=== PATIENT | female | born 1985 | race African-American/Black ===

== ENCOUNTER 2020-10-04 13:00 | Outpatient (REF) | payer OTHER, SELFPAY ==
[2020-10-05 06:08] LABS: CT PCR NOT DETECTED (Not Detect.); NG PCR NOT DETECTED (Not Detect.)
[2020-10-05 08:39] LABS: BV Int Neg Control Negative (Negative); BV Int Pos Control Positive (Positive)
[2020-10-07 13:17] LABS: HPV mRNA E6/E7 rflx Not Detected (Not Detected)
== END 2020-10-04 13:01 | disposition home or self-care (01) ==
LOC: HO.LAB 13:00
PROVIDERS: Visit Provider Advanced Practice Midwife
DX: Z01.419 Encounter for gynecological examination (general) (routine) without abnormal findings (principal); Z11.51 Encounter for screening for human papillomavirus (HPV); Z11.3 Encounter for screening for infections with a predominantly sexual mode of transmission; G43.829 Menstrual migraine, not intractable, without status migrainosus; Z20.2 Contact with and (suspected) exposure to infections with a predominantly sexual mode of transmission; Z87.42 Personal history of other diseases of the female genital tract
CPT/HCPCS: 87480; 87491; 87510; 87591; 87624; 87660; 88142

== ENCOUNTER 2021-03-21 08:39 | Outpatient (REF) | payer OTHER, SELFPAY | END 2021-03-21 08:40 | disposition home or self-care (01) | LOC: HO.LAB 08:39 | PROVIDERS: Visit Provider Internal Medicine | DX: Z20.822 Contact with and (suspected) exposure to COVID-19 (principal) | CPT/HCPCS: C9803; U0003; U0005 ==

== ENCOUNTER 2021-12-15 13:48 | Outpatient (REF) | payer OTHER, SELFPAY ==
[2021-12-16 02:31] LABS: CT PCR NOT DETECTED (Not Detect.); NG PCR NOT DETECTED (Not Detect.)
[2021-12-16 09:47] LABS: BV Int Neg Control Negative (Negative); BV Int Pos Control Positive (Positive)
[2021-12-22 22:41] LABS: HPV mRNA E6/E7 rflx Not Detected (Not Detected)
== END 2021-12-15 13:49 | disposition home or self-care (01) ==
LOC: HO.LNP 13:48
PROVIDERS: Visit Provider Advanced Practice Midwife
DX: Z01.419 Encounter for gynecological examination (general) (routine) without abnormal findings (principal); Z11.51 Encounter for screening for human papillomavirus (HPV); Z11.3 Encounter for screening for infections with a predominantly sexual mode of transmission; Z87.42 Personal history of other diseases of the female genital tract
CPT/HCPCS: 87480; 87491; 87510; 87591; 87624; 87660; 88142

== ENCOUNTER 2022-01-06 09:01 | Emergency (ER) | payer OTHER, SELFPAY ==
--- NOTE | ~2022-01-06 | US_ITS ---
EXAMINATION: US OBSTETRICAL ULTRASOUND CLINICAL INFORMATION: with vaginal bleeding COMPARISON: None. LMP: November 17, 2021. Gestational age by maternal dates is 7 weeks 1 day. Estimated date of delivery by maternal dates is August 24, 2022. TECHNIQUE: Ultrasound of the maternal pelvis is performed using transabdominal and transvaginal transducers. Transvaginal imaging is performed due to inadequate visualization transabdominally. M-mode Doppler is also performed. FINDINGS: Within the cervix/lower uterine segment there is a hypoechoic elongated structure which may represent a gestational sac and somewhat less likely nabothian cysts. No intrauterine is identified. No yolk sac, pole, or heart rate is appreciated. MATERNAL ADNEXA: The right maternal ovary measures 2.1 x 1.1 x 1.5 cm. The left maternal ovary measures 2.0 x 1.6 x 1.3 cm. There is no significant maternal adnexal mass. There is trace fluid seen within the cul-de-sac. US/US OB pelvic and transvaginal IMPRESSION: No intrauterine identified. Question elongated gestational sac within the lower uterine segment/cervix.
[2022-01-06 09:17] VITALS: BP 120/80; PULSE 98; RESP 16; TEMP 36.7; O2SAT 97; BMI 25.6
[2022-01-06 11:37] LABS: MANUAL DIFF FLAG NO
[2022-01-06 11:41] LABS: Basophils Absolute Auto 0.1 X10*3/uL (0.0-0.2); Basophils Percent Auto 0.5 % (0-2); Eosinophils Percent Auto 0.2 % (0-4); Hematocrit 44.2 % (37.0-47.0); Hemoglobin 14.2 g/dl (12.0-16.0); Imm Gran Abs Auto 0.03 X10*3/uL (0.00-0.03); Imm Gran Pct Auto 0.2 % (0.0-0.4); Lymphocytes Absolute Auto 2.1 X10*3/uL (1.2-4.9); Lymphocytes Percent Auto 15.8 % (20-40); Mean Corpuscular HGB Conc 32.1 g/dl (31.0-35.0); Mean Corpuscular Hemoglobin 29.7 pg (27.0-33.0); Mean Corpuscular Volume 92.5 fL (80.0-98.0); Mean Platelet Volume 10.7 fL (9.4-12.3); Monocytes Absolute Auto 0.5 X10*3/uL (0.1-1.2); Monocytes Percent Auto 3.6 % (2-11); Neutrophils Absolute Auto 10.4 x10*3/uL (2.0-8.3); Neutrophils Percent Auto 79.7 % (45-73); Platelet Count 276 X10*3/uL (160-400); Red Blood Count 4.78 X10*6/uL (4.20-5.50); Red Cell Distribution Width 12.6 % (11.0-16.0); White Blood Count 13.1 X10*3/uL (4.8-10.8)
[2022-01-06 12:00] LABS: Alanine Aminotransferase 10 U/L (0-31); Alkaline Phosphatase 94 U/L (39-117); Anion Gap 14 (12-20); Aspartate Amino Transferase 12 U/L (5-31); Bilirubin Total 0.6 mg/dL (0.0-1.0); Blood Urea Nitrogen 5 mg/dL (9-16); Calcium 9.1 mg/dL (8.4-10.2); Carbon Dioxide 23 mmol/L (22-29); Chloride 105 mmol/L (96-108); Creatinine Clr Calc Pharmacy 120.6; Estimated Glomerular Filt Rate > 60; Glucose Random 97 mg/dL (60-115); Potassium 4.3 mmol/L (3.3-5.1); Sodium 138 mmol/L (135-145); Total Protein 6.9 g/dL (6.5-8.0)
[2022-01-06 13:43] VITALS: BP 130/74; PULSE 97; RESP 18; TEMP 37.1; O2SAT 99
--- NOTE | 2022-01-06 16:48 | ED_ITS ---
HPI - General Chief complaint: Vaginal Bleeding Stated complaint: possible miscarrige Time Seen by Provider: 01/06/22 16:46 Source: patient Mode of arrival: ambulatory Limitations: no limitations History of Present Illness HPI Narrative: This is a 36 year old female A0 prsenting to the emergency department with complaints of abdominal discomfort, vaginal bleeding since this morning. According to patient she noted a large amount of blood earlier today when she wiped after going to the bathroom, she reports that she thinks she is around seven weeks . She tells me that she is not bleeding heavily however when she wipes she notices dark red blood. She reports that her abdomen feels bizarre and she describes ?gas bubbles ? and intermittent cramping to lower abdomen. She called her OBGYN who is out of [facility] and they advised her to come in to be evaluated. Patient is taking vitamins,however has not been seen by OBGYN yest. Patient has never had an or miscarriage in the past. Patient denies fevers, chills, chest pain, headache, dizziness, vision changes, shortness of breath nausea, vomiting, vaginal discharge, changes in urination or bowel habits per MD Complaint: vaginal bleeding Related Data Home Medications Medication Instructions Recorded Confirmed levothyroxine 75 mcg capsule 75 mcg PO DAILY 10/04/20 12/15/21 Previous Rx's Medication Instructions Recorded vitamin with calcium 1 tab PO DAILY #90 tabs 12/15/21 no.72-iron 27 mg-folic acid 1 mg tablet ( Vitamins Plus Low Iron) metronidazole 500 mg tablet 500 mg PO BID 7 days #14 tabs 12/16/21 Allergies Allergy/AdvReac Type Severity Reaction Status Date / Time No Known Allergies Allergy Verified 01/06/22 09:17 Review of Systems Review of Systems: Constitutional : No Weight loss, No Fever, No Chills, No Fatigue, No Malaise ENT/Mouth : No sore throat, No Rhinorrhea Eyes: No Eye Pain, No Swelling, No Redness Cardiovascular : No Chest Pain, No SOB, No Dyspnea on Exertion, No Orthopnea, No Edema, No Palpitations Respiratory : No Cough, No Sputum, No Wheezing Gastrointestinal : No Nausea, No Vomiting, No Diarrhea, No Constipation, + abdominal Pain, No Hematochezia, No Melena, Genitourinary : No Dysuria, No Urinary Frequency, No Hematuria, + vaignal bleeding Musculoskeletal : No joint pain, No Myalgias, No Joint Swelling Skin : No Skin Lesions, No rash Neuro : No Weakness, No Numbness, No Dizziness, No Headache Psych : No Anxiety/Panic, No Depression All other systems reviewed and are negative Yes all other systems are reviewed and are negative [facility] Past Medical History Attestation statement: The following information was validated with the patient. Source: old records reviewed and nursing notes reviewed Medical History Hypothyroid Family History Family History Paternal Aunt Breast cancer Social History Social History Alcohol intake: current Alcohol intake frequency: a few times a week Patient Tobacco Use Status: Never used Tobacco Advance Directives: No Advance Directives Information Provided: No Patient : Yes Gender identity: Female Physical Exam Vital Signs: Vital Signs: Last Vital Signs Temp 99.2 F 01/06/22 19:27 Pulse 94 01/06/22 19:27 Resp 18 01/06/22 19:27 BP 132/76 01/06/22 19:27 Pulse Ox 99 01/06/22 19:27 O2 Del Method 01/06/22 19:27 BMI result Body Mass Index 25.6 vss Appearance: Alert.? Oriented X3.? No acute distress.? Head: Normocephalic, atraumatic, no step-offs or deformities Eyes: Pupils equal, round and reactive to light.? Neck: Normal inspection.? Neck supple.? CVS: Normal heart rate and rhythm.? Pulses normal.? Respiratory: No respiratory distress.? Breath sounds normal.? Abdomen: Soft and nontender.? Skin: Skin warm and dry.? Normal skin color.? Normal skin turgor.? Extremities: No lower extremity edema.? No calf ttp. 5/5 strength to bilateral upper and lower extremities Pelvic exam: Neuro: Oriented X 3.? No motor deficit.? No sensory deficit. CN 2-12 intact Course Reevaluation(s) Reevaluation #1: CBC with slight leukocytosis, likely reactive secondary to inflammatory changes, chemistry with no acute electrolyte abnormalities requiring intervention. HCG 1961. Patient is noted to be O positive, pelvic and transvaginal ultrasound with no intrauterine . There is a question elongated gestational sac within the lower uterine segment/the cervix. This is all concerning for active miscarriage. Patient still declining pelvic exam. I did speak to . who recommends if blood type negative rhogam 300 mcg. A recommends for her to come back to the emergency department 48 hours for re-evaluation with repeat hCG jody titative and ultrasound. And he advised me to educate her on worrisome signs and symptoms and when to return to the emergency department. Time: 17:23 Reevaluation #2: Patient remains hemodynamically stable, abdomen exam benign. Since patient is O positive no need for RhoGAM. Time: 18:34 Reevaluation #3: At this time patient will be discharged home advised return in 48 hours for re- evaluation, educated her on warning signs and symptoms and when to return. Likely threatened /miscarriage. At this time I feel comfortable discharge home with prompt PCP, OBGYN follow-up and 48 hour emergency department follow-up. Time: 19:25 MDM - OB/Uterine Contractions MDM Narrative Medical decision making narrative: 1650 This is a 36-year-old female a 1 presenting to the emergency department with vaginal bleeding with wiping, abd cramping currently 7 weeks , has an OBGYN but hasn't seen them yet. No history of miscarriage or . Physical examination with soft nontender abdomen, normoactive bowel sounds, regular rate and rhythm, lungs clear, neuro nonfocal, vital signs stable, patient appears well and in no acute distress. Sensitive exam was refussed by patient Concerns for threatened or abnormal bleeding during . Plan at this time is to obtain basic labs, STD testing, ultrasound Medical Records Attestation: I reviewed the patient's medical records. Lab Data Attestation: I reviewed the patient's lab results. Result diagrams: 01/06/22 19:31 01/06/22 11:26 Labs: Lab Results 01/06/22 01/06/22 01/06/22 Range/Units 11:26 11:26 11:26 WBC 13.1 H (4.8-10.8) X10*3/uL RBC 4.78 (4.20-5.50) X10*6/uL Hgb 14.2 (12.0-16.0) g/dl Hct 44.2 (37.0-47.0) % MCV 92.5 (80.0-98.0) fL MCH 29.7 (27.0-33.0) pg MCHC 32.1 (31.0-35.0) g/dl RDW 12.6 (11.0-16.0) % Plt Count 276 (160-400) X10*3/uL MPV 10.7 (9.4-12.3) fL Immature Gran % (Auto) 0.2 (0.0-0.4) % Neut % (Auto) 79.7 H (45-73) % Lymph % (Auto) 15.8 L (20-40) % [place] % (Auto) 3.6 (2-11) % Eos % (Auto) 0.2 (0-4) % Baso % (Auto) 0.5 (0-2) % Lymph # (Auto) 2.1 (1.2-4.9) X10*3/uL [place] # (Auto) 0.5 (0.1-1.2) X10*3/uL Eos # (Auto) 0.0 (0.0-0.4) X10*3/uL Baso # (Auto) 0.1 (0.0-0.2) X10*3/uL Abs Immat Gran (auto) 0.03 (0.00-0.03) X10*3/uL Absolute Neuts (auto) 10.4 H (2.0-8.3) x10*3/uL Absolute Nucleated RBC 0.000 (0.0-0.012) X10*3/uL Nucleated RBC % (auto) 0.0 (0.0-0.2) /100WBC Sodium 138 (135-145) mmol/L Potassium 4.3 (3.3-5.1) mmol/L Chloride 105 (96-108) mmol/L Carbon Dioxide 23 (22-29) mmol/L Anion Gap 14 (12-20) BUN 5 L (9-16) mg/dL Creatinine 0.62 (0.5-1.4) mg/dL Estim Creat Clear Calc 120.6 Estimated GFR > 60 Random Glucose 97 (60-115) mg/dL Calcium 9.1 (8.4-10.2) mg/dL Total Bilirubin 0.6 (0.0-1.0) mg/dL AST 12 (5-31) U/L ALT 10 (0-31) U/L Alkaline Phosphatase 94 (39-117) U/L Total Protein 6.9 (6.5-8.0) g/dL Albumin 4.0 (3.5-5.0) g/dL Beta HCG, Quant 1961 mIU/mL Blood Type O Positive Antibody Screen 01/06/22 01/06/22 Range/Units 18:43 19:31 WBC 14.4 H (4.8-10.8) X10*3/uL RBC 4.86 (4.20-5.50) X10*6/uL Hgb 14.7 (12.0-16.0) g/dl Hct 44.4 (37.0-47.0) % MCV 91.4 (80.0-98.0) fL MCH 30.2 (27.0-33.0) pg MCHC 33.1 (31.0-35.0) g/dl RDW 12.8 (11.0-16.0) % Plt Count 268 (160-400) X10*3/uL MPV 10.2 (9.4-12.3) fL Immature Gran % (Auto) 0.2 (0.0-0.4) % Neut % (Auto) 76.4 H (45-73) % Lymph % (Auto) 18.1 L (20-40) % [place] % (Auto) 4.7 (2-11) % Eos % (Auto) 0.3 (0-4) % Baso % (Auto) 0.3 (0-2) % Lymph # (Auto) 2.6 (1.2-4.9) X10*3/uL [place] # (Auto) 0.7 (0.1-1.2) X10*3/uL Eos # (Auto) 0.0 (0.0-0.4) X10*3/uL Baso # (Auto) 0.1 (0.0-0.2) X10*3/uL Abs Immat Gran (auto) 0.03 (0.00-0.03) X10*3/uL Absolute Neuts (auto) 11.0 H (2.0-8.3) x10*3/uL Absolute Nucleated RBC 0.000 (0.0-0.012) X10*3/uL Nucleated RBC % (auto) 0.0 (0.0-0.2) /100WBC Sodium (135-145) mmol/L Potassium (3.3-5.1) mmol/L Chloride (96-108) mmol/L Carbon Dioxide (22-29) mmol/L Anion Gap (12-20) BUN (9-16) mg/dL Creatinine (0.5-1.4) mg/dL Estim Creat Clear Calc Estimated GFR Random Glucose (60-115) mg/dL Calcium (8.4-10.2) mg/dL Total Bilirubin (0.0-1.0) mg/dL AST (5-31) U/L ALT (0-31) U/L Alkaline Phosphatase (39-117) U/L Total Protein (6.5-8.0) g/dL Albumin (3.5-5.0) g/dL Beta HCG, Quant mIU/mL Blood Type O Positive Antibody Screen NEGATIVE Critical Care Time Critical Care Time Critical Care Time: Yes Total Critical Care Time: 35 Attestation: I attest to this time spent taking care of the patient, obtaining history, physical, reviewing labs, imaging, speaking to my attending, speaking to specialist. Discharge Plan Discharge Clinical Impression: Vaginal bleeding in , Threatened Patient Disposition: Home, Self-Care Instructions: Miscarriage (ED), Dilation and Curettage (DC) Additional Instructions: Take your medications as prescribed. If you were prescribed antibiotics today, it is important that you take your medication to their entirety, do not skip any doses, do not finish them early. Follow-up with your primary care provider this week. Return to the emergency department with new or worsening symptoms. Such as fevers, chills, chest pain, shortness of breath, nausea, vomiting, dizziness, headache, vision changes, lethargy, abdominal pain, heavy vaginal bleeding or bleeding through more than 2 pads per hour, pelvic pain In case of emergency call 911 Based off of your physical examination, laboratory studies and imaging it is likely that your miscarrying however this cannot be confirmed unless further evaluation is done including ultrasound and repeat laboratory studies. I need you to call OBGYN and schedule an appointment with them as soon as possible. You need to be re-evaluated as soon as possible. Return to the emergency department in 48 hours for re-evaluation where you will get a repeat hCG quantitative and ultrasound. Prescriptions: No Action metronidazole 500 mg tablet 500 mg PO BID 7 Days Qty: 14 0RF Rx Instructions: Take with food, Avoid alcohol and vinegar products levothyroxine 75 mcg capsule 75 mcg PO DAILY Vitamin Plus Low Iron 27 mg iron- 1 mg tablet 1 tab PO DAILY Qty: 90 4RF Referrals: Luli Ellsworth NP [Primary Care Provider] - 2 days Navarro Kline MD [Physician] - 1 day Stand Alone Forms: Work/School Release
[2022-01-06 16:52] VITALS: BP 134/85; PULSE 111; RESP 22; O2SAT 97
[2022-01-06 17:14] LABS: HCG Quantitative 1961 mIU/mL
--- NOTE | 2022-01-06 17:30 | PM.GYNCN ---
[employer] - CN: HPI Data of Consult Consult date: 01/06/22 Primary Care Provider: Luli Ellsworth NP Consult Narrative Narrative: I was consulted on Liliam Chan who is a 36 year old A0 at 7 weeks of gestation by LMP according to the patient presenting to the emergency department with abdominal discomfort, vaginal bleeding since this morning.? No care yet.? No other complaints. In the emergency CBC within normal,HCG 1960, ultrasound done, GC and chlamydia, BV panel collected, results pending, blood type pending cc:: CC: OB [facility] Past Medical History Medical History Hypothyroid Family History Family History Paternal Aunt Breast cancer Social History Social History Alcohol intake: current Alcohol intake frequency: a few times a week Patient Tobacco Use Status: Never used Tobacco Advance Directives: No Advance Directives Information Provided: No Patient : Yes Gender identity: Female Meds Allergies Allergy/AdvReac Type Severity Reaction Status Date / Time No Known Allergies Allergy Verified 01/06/22 09:17 Home Medications Medication Instructions Recorded Confirmed Last Taken Type levothyroxine 75 mcg capsule 75 mcg PO DAILY 10/04/20 12/15/21 Unknown History [employer] Physical Exam Vitals Vital signs: Temp Pulse Resp BP Pulse Ox O2 Del Method 98.7 F 111 H 22 H 134/85 97 01/06/22 13:43 01/06/22 16:52 01/06/22 16:52 01/06/22 16:52 01/06/22 16:52 01/06/22 16:52 BMI result Body Mass Index 25.6 Additional Comments: Per JANELL Escalante Abdominal exam soft nontender and benign Pelvic exam patient adamantly declined [employer] - Results Labs CBC & Chem 7: 01/06/22 11:26 01/06/22 11:26 Labs: Short CBC 01/06/22 Range/Units 11:26 WBC 13.1 H (4.8-10.8) X10*3/uL Hgb 14.2 (12.0-16.0) g/dl Hct 44.2 (37.0-47.0) % Plt Count 276 (160-400) X10*3/uL BMP 01/06/22 11:26 Sodium 138 Potassium 4.3 Chloride 105 Carbon Dioxide 23 BUN 5 L Creatinine 0.62 Calcium 9.1 Liver Function 01/06/22 Range/Units 11:26 Total Bilirubin 0.6 (0.0-1.0) mg/dL AST 12 (5-31) U/L ALT 10 (0-31) U/L Alkaline Phosphatase 94 (39-117) U/L Albumin 4.0 (3.5-5.0) g/dL Imaging US - abdomen: Radiologist's impression: ITS Impressions Pelvic/Transvag US 01/06/22 16:18 IMPRESSION: No intrauterine identified. Question elongated gestational sac within the lower uterine segment/cervix. Assessment and Plan (1) First trimester bleeding: Status: Acute Plan Differential diagnosis includes but not limited to SAB, early intrauterine normal or ectopic . Recommended to JANELL Escalante in the emergency room the following: Check Rh if negative RhoGAM 300 mcg IM vitamin 1 tablet p.o. q.d. Follow-up back in the emergency room in 48 hours for a repeat hCG quantitative and ultrasound SAB/ectopic warnings to be given to patient, she is to come back in case to the emergency of abdominal pain, vaginal bleeding. I spent a total of 20 minute reviewing the chart, communicating to the emergency room provider and documenting in the medical record
[2022-01-06 18:20] VITALS: BP 134/83; PULSE 105; RESP 16; TEMP 37.5; O2SAT 98
[2022-01-06 19:27] VITALS: BP 132/76; PULSE 94; RESP 18; TEMP 37.3; O2SAT 99
--- NOTE | 2022-01-06 19:28 | PC.NURSE ---
care assumed now. patient is alert, oriented x4, and well-appearing. she endorses abdominal cramping and lower back pain. she states she's been through 3 pads since her arrival to the ED, though reports they weren't fully saturated. she is requesting food/drink- per MD now patient is OK to eat and partner goes to cafeteria to get her food. obtaining repeat CBC now then likely discharge per ED team. vitals are stable. patient is tearful, emotional support provided. call allen is within reach.
[2022-01-06 19:34] LABS: MANUAL DIFF FLAG NO
[2022-01-06 19:35] LABS: Basophils Absolute Auto 0.1 X10*3/uL (0.0-0.2); Basophils Percent Auto 0.3 % (0-2); Eosinophils Percent Auto 0.3 % (0-4); Hematocrit 44.4 % (37.0-47.0); Hemoglobin 14.7 g/dl (12.0-16.0); Imm Gran Abs Auto 0.03 X10*3/uL (0.00-0.03); Imm Gran Pct Auto 0.2 % (0.0-0.4); Lymphocytes Absolute Auto 2.6 X10*3/uL (1.2-4.9); Lymphocytes Percent Auto 18.1 % (20-40); Mean Corpuscular HGB Conc 33.1 g/dl (31.0-35.0); Mean Corpuscular Hemoglobin 30.2 pg (27.0-33.0); Mean Corpuscular Volume 91.4 fL (80.0-98.0); Mean Platelet Volume 10.2 fL (9.4-12.3); Monocytes Absolute Auto 0.7 X10*3/uL (0.1-1.2); Monocytes Percent Auto 4.7 % (2-11); Neutrophils Percent Auto 76.4 % (45-73); Platelet Count 268 X10*3/uL (160-400); Red Blood Count 4.86 X10*6/uL (4.20-5.50); Red Cell Distribution Width 12.8 % (11.0-16.0); White Blood Count 14.4 X10*3/uL (4.8-10.8)
[2022-01-07 05:35] LABS: CT PCR NOT DETECTED (Not Detect.); NG PCR NOT DETECTED (Not Detect.)
[2022-01-07 14:26] LABS: BV Int Neg Control Negative (Negative); BV Int Pos Control Positive (Positive)
== END 2022-01-06 20:00 | disposition home or self-care (01) ==
PROVIDERS: Physician Assistant; Emergency Provider Emergency Medicine Emergency Medical Services; PCP Nurse Practitioner Family
DX: O20.0 Threatened abortion (principal); Z3A.01 Less than 8 weeks gestation of pregnancy; Z79.899 Other long term (current) drug therapy
CPT/HCPCS: 36415; 76801; 76817; 80053; 84702; 85025; 86850; 86900; 86901; 87480; 87491; 87510; 87591; 87660; 99284

== ENCOUNTER 2022-01-09 11:10 | Outpatient (REF) | payer OTHER, SELFPAY ==
--- NOTE | ~2022-01-09 | US_ITS ---
EXAMINATION: US OBSTETRICAL ULTRASOUND CLINICAL INFORMATION: Threatened COMPARISON: Examination of 3 days previous.. TECHNIQUE: Transabdominal and transvaginal examination. FINDINGS: No gestational sac, yolk sac, pole identified. The previously noted elongated hypoechoic structure noted previously does not appear to be significantly changed and may reflect nabothian cysts at the lower uterine segment. MATERNAL ADNEXA: The right maternal ovary measures 2.4 x 1.4 x 1.9 cm. No focal abnormality. The left maternal ovary measures 2.5 x 1.3 x 1.6 cm. No focal abnormality. There is no significant maternal adnexal mass. No maternal pelvic ascites. US/US OB <= 14 weeks fetus IMPRESSION: No appreciable intrauterine gestation identified. Previously noted elongated hypoechoic structure at the lower uterine segment may reflect nabothian cysts and does not appear to be significantly changed, although a threatened is not completely excluded. No new free fluid. Serial beta hCG evaluation and follow-up ultrasound could be helpful for further assessment.
[2022-01-09 12:12] LABS: HCG Quantitative 80 mIU/mL
== END 2022-01-09 11:11 | disposition home or self-care (01) ==
LOC: HO.US 11:10
PROVIDERS: Visit Provider Advanced Practice Midwife
DX: O03.9 Complete or unspecified spontaneous abortion without complication (principal)
CPT/HCPCS: 36415; 76801; 84702; 99212

== ENCOUNTER 2022-01-16 13:27 | Outpatient (REF) | payer OTHER, SELFPAY ==
[2022-01-16 15:29] LABS: HCG Quantitative 4 mIU/mL
== END 2022-01-16 13:28 | disposition home or self-care (01) ==
LOC: HO.LAB 13:27
PROVIDERS: PCP Nurse Practitioner Family; Visit Provider Advanced Practice Midwife
DX: O03.9 Complete or unspecified spontaneous abortion without complication (principal)
CPT/HCPCS: 36415; 84702

== ENCOUNTER 2022-01-25 16:05 | Outpatient (REF) | payer OTHER, SELFPAY ==
[2022-01-25 17:01] LABS: HCG Quantitative < 2 mIU/mL
== END 2022-01-25 16:06 | disposition home or self-care (01) ==
LOC: HO.LAB 16:05
PROVIDERS: Visit Provider Advanced Practice Midwife
DX: O03.9 Complete or unspecified spontaneous abortion without complication (principal)
CPT/HCPCS: 36415; 84702

== ENCOUNTER 2022-04-03 10:02 | Outpatient (REF) | payer OTHER, SELFPAY ==
[2022-04-03 12:45] LABS: HCG Quantitative 26571 mIU/mL
== END 2022-04-03 10:03 | disposition home or self-care (01) ==
LOC: HO.LAB 10:02
PROVIDERS: Visit Provider Advanced Practice Midwife
DX: O09.529 Supervision of elderly multigravida, unspecified trimester (principal)
CPT/HCPCS: 36415; 81025; 84702; 99212

== ENCOUNTER 2022-04-21 12:40 | Outpatient (REF) | payer OTHER, SELFPAY ==
--- NOTE | ~2022-04-21 | US_ITS ---
EXAMINATION: US OBSTETRICAL ULTRASOUND CLINICAL INFORMATION: Positive test. COMPARISON: None. LMP: 02/10/2022. Gestational age by maternal dates is 10 weeks 0 days. Estimated date of delivery by maternal dates is 11/17/2022. TECHNIQUE: Ultrasound of the maternal pelvis is performed using transabdominal and transvaginal transducers. Transvaginal imaging is performed due to inadequate visualization transabdominally. M-mode Doppler is also performed. FINDINGS: There is a single intrauterine gestational sac with visible yolk sac, embryo/fetus, and cardiac activity. There is no significant subchorionic hemorrhage or hematoma. HR: 172 beats per minute. CRL (crown rump length): 2.44 cm (9 weeks 2 days +/- 4 days). CHRISTEL (estimated date of delivery): 11/22/2022 +/- 4 days. MATERNAL ADNEXA: The right maternal ovary measures 3.2 x 2.7 x 1.8 cm. The left maternal ovary is not visualized. There is no significant maternal adnexal mass. No maternal pelvic ascites. US/US OB <= 14 weeks fetus IMPRESSION: 1. Single intrauterine gestation with ultrasound gestational age of 9 weeks 2 days +/- 4 days. 2. Estimated date of delivery is 11/22/2022 +/- 4 days. 3. No maternal adnexal mass or pelvic ascites.
== END 2022-04-21 12:41 | disposition home or self-care (01) ==
LOC: HO.US 12:40
PROVIDERS: Visit Provider Advanced Practice Midwife
DX: O09.521 Supervision of elderly multigravida, first trimester (principal); Z3A.10 10 weeks gestation of pregnancy
CPT/HCPCS: 76801

== ENCOUNTER 2022-04-27 13:57 | Outpatient (REF) | payer OTHER, SELFPAY | END 2022-04-27 13:58 | disposition home or self-care (01) | LOC: HO.LAB 13:57 | PROVIDERS: PCP Nurse Practitioner Family; Visit Provider Advanced Practice Midwife | DX: O99.280 Endocrine, nutritional and metabolic diseases complicating pregnancy, unspecified trimester (principal); O09.529 Supervision of elderly multigravida, unspecified trimester; E03.9 Hypothyroidism, unspecified; Z71.3 Dietary counseling and surveillance | CPT/HCPCS: 99212 ==

== ENCOUNTER 2022-05-01 15:34 | Outpatient (REF) | payer OTHER, SELFPAY ==
[2022-05-01 16:27] LABS: Hematocrit 43.7 % (37.0-47.0); Hemoglobin 14.5 g/dl (12.0-16.0); Mean Corpuscular HGB Conc 33.2 g/dl (31.0-35.0); Mean Corpuscular Volume 90.3 fL (80.0-98.0); Mean Platelet Volume 11.3 fL (9.4-12.3); Platelet Count 278 X10*3/uL (160-400); Red Blood Count 4.84 X10*6/uL (4.20-5.50); Red Cell Distribution Width 12.4 % (11.0-16.0); White Blood Count 12.9 X10*3/uL (4.8-10.8)
[2022-05-01 16:32] LABS: Amphetamine Screen Urine Not Detected (Not Detect); Barbiturates, Urine Not Detected (Not Detect); Benzodiazepines Screen Urine Not Detected (Not Detect); Cannabinoid Screen Urine POSITIVE (Not Detect); Cocaine Screen Urine Not Detected (Not Detect); Fentanyl, urine Not Detected (Not Detect); Opiate Screen Urine Not Detected (Not Detect); Phencyclidine Screen Urine Not Detected (Not Detect)
[2022-05-01 17:02] LABS: TSH reflex Free T4 (Prenatal) 10.25 uIU/mL (0.32-4.0)
[2022-05-02 08:43] LABS: Rubella IgG Antibody <0.90 Index
[2022-05-03 07:52] LABS: Syphilis Screen Nonreactive (Nonreactive)
[2022-05-03 07:58] LABS: HIV AB/AG Nonreactive (Nonreactive); HIV Num 1 0.08 S/CO (0.00-0.99); Hepatitis B Surface Antigen Negative (Negative); ~HepC Num1 0.07 S/CO (0.00-0.79); ~Hepatitis C Antibody Nonreactive (Nonreactive)
[2022-05-11 16:39] LABS: CF Ethnicity NG; Cystic Fibrosis NEGATIVE (NEGATIVE)
== END 2022-05-01 15:35 | disposition home or self-care (01) ==
LOC: HO.LAB 15:34
PROVIDERS: PCP Nurse Practitioner Family; Visit Provider Advanced Practice Midwife
DX: Z11.4 Encounter for screening for human immunodeficiency virus [HIV] (principal); O99.280 Endocrine, nutritional and metabolic diseases complicating pregnancy, unspecified trimester; E03.9 Hypothyroidism, unspecified
CPT/HCPCS: 80307; 81220; 84439; 85027; 86762; 86780; 86787; 86803; 86850; 86900; 87086; 87340; 87389

== ENCOUNTER 2022-05-08 13:43 | Outpatient (REF) | payer OTHER, SELFPAY ==
[2022-05-09 05:33] LABS: CT PCR NOT DETECTED (Not Detect.); NG PCR NOT DETECTED (Not Detect.)
[2022-05-09 11:20] LABS: BV Int Neg Control Negative (Negative); BV Int Pos Control Positive (Positive)
== END 2022-05-08 13:44 | disposition home or self-care (01) ==
LOC: HO.LNP 13:43
PROVIDERS: PCP Nurse Practitioner Family; Visit Provider Advanced Practice Midwife
DX: O09.521 Supervision of elderly multigravida, first trimester (principal); O99.281 Endocrine, nutritional and metabolic diseases complicating pregnancy, first trimester; O98.311 Other infections with a predominantly sexual mode of transmission complicating pregnancy, first trimester; E03.9 Hypothyroidism, unspecified; Z3A.11 11 weeks gestation of pregnancy; Z87.42 Personal history of other diseases of the female genital tract
CPT/HCPCS: 0353U; 87480; 87510; 87660; 99212

== ENCOUNTER → 2022-06-08 13:32 | Outpatient (BNVA) | payer OTHER, SELFPAY | PROVIDERS: PCP Nurse Practitioner Family; Visit Provider Obstetrics & Gynecology | DX: O09.522 Supervision of elderly multigravida, second trimester (principal); O99.282 Endocrine, nutritional and metabolic diseases complicating pregnancy, second trimester; E03.9 Hypothyroidism, unspecified | CPT/HCPCS: 99212 ==

== ENCOUNTER 2022-06-16 13:32 | Outpatient (REF) | payer OTHER, SELFPAY ==
[2022-06-16 15:03] LABS: Amphetamine Screen Urine Not Detected (Not Detect); Barbiturates, Urine Not Detected (Not Detect); Benzodiazepines Screen Urine Not Detected (Not Detect); Cannabinoid Screen Urine Not Detected (Not Detect); Cocaine Screen Urine Not Detected (Not Detect); Fentanyl, urine Not Detected (Not Detect); Opiate Screen Urine Not Detected (Not Detect); Phencyclidine Screen Urine Not Detected (Not Detect)
[2022-06-16 16:39] LABS: TSH reflex Free T4 (Prenatal) 1.77 uIU/mL (0.32-4.0)
[2022-07-03 07:37] LABS: AFP Maternal Screen SEE COMMENTS
== END 2022-06-16 13:33 | disposition home or self-care (01) ==
LOC: HO.LAB 13:32
PROVIDERS: PCP Nurse Practitioner Family; Visit Provider Obstetrics & Gynecology
DX: Z34.90 Encounter for supervision of normal pregnancy, unspecified, unspecified trimester (principal)
CPT/HCPCS: 80307; 82105

== ENCOUNTER → 2022-07-06 13:12 | Outpatient (BNVA) | payer OTHER, SELFPAY | PROVIDERS: Visit Provider Obstetrics & Gynecology | DX: O09.522 Supervision of elderly multigravida, second trimester (principal); O99.282 Endocrine, nutritional and metabolic diseases complicating pregnancy, second trimester; E03.9 Hypothyroidism, unspecified; O09.292 Supervision of pregnancy with other poor reproductive or obstetric history, second trimester; Z3A.20 20 weeks gestation of pregnancy | CPT/HCPCS: 99212 ==

== ENCOUNTER → 2022-08-03 15:01 | Outpatient (BNVA) | payer OTHER, SELFPAY | PROVIDERS: Visit Provider Advanced Practice Midwife | DX: O09.522 Supervision of elderly multigravida, second trimester (principal); O99.282 Endocrine, nutritional and metabolic diseases complicating pregnancy, second trimester; E03.9 Hypothyroidism, unspecified; O26.22 Pregnancy care for patient with recurrent pregnancy loss, second trimester; Z3A.24 24 weeks gestation of pregnancy | CPT/HCPCS: 81003; 99212 ==

== ENCOUNTER 2022-09-02 08:03 | Outpatient (REF) | payer OTHER, SELFPAY ==
[2022-09-02 10:14] LABS: Hematocrit 37.5 % (37.0-47.0); Hemoglobin 12.4 g/dl (12.0-16.0); Mean Corpuscular HGB Conc 33.1 g/dl (31.0-35.0); Mean Corpuscular Hemoglobin 30.7 pg (27.0-33.0); Mean Corpuscular Volume 92.8 fL (80.0-98.0); Mean Platelet Volume 10.8 fL (9.4-12.3); Platelet Count 229 X10*3/uL (160-400); Red Blood Count 4.04 X10*6/uL (4.20-5.50); Red Cell Distribution Width 12.6 % (11.0-16.0); White Blood Count 11.6 X10*3/uL (4.8-10.8)
[2022-09-02 10:29] LABS: Glucose 1 Hour PP 50gm Dose 128 mg/dL (60-140)
[2022-09-02 10:57] LABS: TSH reflex Free T4 (Prenatal) 1.27 uIU/mL (0.32-4.0)
[2022-09-04 08:39] LABS: Syphilis Screen Nonreactive (Nonreactive)
== END 2022-09-02 08:04 | disposition home or self-care (01) ==
LOC: HO.LAB 08:03
PROVIDERS: Absent Provider Obstetrics & Gynecology; PCP Nurse Practitioner Family; Visit Provider Advanced Practice Midwife
DX: O99.280 Endocrine, nutritional and metabolic diseases complicating pregnancy, unspecified trimester (principal); E03.9 Hypothyroidism, unspecified
CPT/HCPCS: 36415; 82950; 85027; 86780

== ENCOUNTER → 2022-09-05 08:05 | Outpatient (BNVA) | payer OTHER, SELFPAY | PROVIDERS: PCP Nurse Practitioner Family; Visit Provider Advanced Practice Midwife | DX: O09.523 Supervision of elderly multigravida, third trimester (principal); Z3A.28 28 weeks gestation of pregnancy | CPT/HCPCS: 81003; 99212 ==

== ENCOUNTER → 2022-09-19 08:17 | Outpatient (BNVA) | payer OTHER, SELFPAY | PROVIDERS: PCP Nurse Practitioner Family; Visit Provider Advanced Practice Midwife | DX: O09.523 Supervision of elderly multigravida, third trimester (principal); O99.283 Endocrine, nutritional and metabolic diseases complicating pregnancy, third trimester; E03.9 Hypothyroidism, unspecified; Z3A.30 30 weeks gestation of pregnancy | CPT/HCPCS: 81003; 99212 ==

== ENCOUNTER 2022-10-05 15:41 | Outpatient (AMB) | payer OTHER, SELFPAY ==
--- NOTE | 2022-10-05 15:48 | A.OFFVISPN_ITS ---
Intake Vital Signs 10/05/22 15:49 Height 5 ft 5 in Weight 176 lb BMI 29.3 BP 100/60 Intake Visit Reasons: MAGALIS Intake Note: The patient agreed to use of a medical chief technician during this encounter. Scribed for LINDSAY Paredes by Khadijah Lloyd, medical chief technician, on 10/05/2022 at 4:00 pm EST. Allergies No Known Allergies Allergy (Verified 10/05/22 15:48) Patient : Yes PFSH Medical History (Updated 09/19/22 @ 08:52 by Khadijah Lloyd) Encounter for supervision of normal in third trimester Encounter for supervision of other normal , second trimester Hypothyroid (~04/27/22) Family History Paternal Aunt Breast cancer Social History Alcohol intake: current Alcohol intake frequency: a few times a week Patient Tobacco Use Status: Never used Tobacco Patient : Yes Gender identity: Female Female Reproductive History Menstrual Age of Menarche: 10 History History 5 Elective abortions 0 Para Spontaneous abortions 1 Hx # Term Pregnancies 3 Ectopic pregnancies 0 Hx # Pregnancies 0 Multiple births 0 Past Pregnancies Del. Date GA/Weeks Outcome Route Wt Inf Gender Labor Debbie Anesthesia Location Provider Complicate 07/04/02 40 live - full term 7 lb 7 oz Male 16 hurs none [facility] [place] 11/14/05 40 live - full term 8 lb 6 oz Female 15 hours none [facility] [place] 01/29/10 41 live - full term 7 lb 6 oz Female 4 hours none [facility] [place] 01/04/22 7 spontaneous Visit [facility] Calculator Estimated Delivery Date Method Current WG Current Estimate 11/22/22 Ultrasound #1 33w 1d Other Estimates 11/17/22 LMP (Uncertain) 33w 6d Expected Delivery Route/Plan vaginal Specific Issues/Plans 36yr. old ? ? G 5?P 3003? ? ?LMP: 02/10/22 ? EDC: 11/22/22 ?by early u/s ? ?Blood type: O pos Problem List: 1. AMA: AP testing at 37 wks 2. Hypothyroid-stopped Levothyroxine 75 mcg after SAB, TSH = 10.25-Synthroid restarted, TSH Q trimester. 09/02/22-1.27 3. Marijuana use: quit w/diagnosis. counseled re: not to use during . Advised random UDS, testing at delivery, infant testing, social worker masters visit/assessment , possible filing 51A. Provide a smoke free environment at home and in the car, and no exposure to second hand smoke. 4. Rubella non immune: pp vaccine 5. gardnerella Pos, to be offered rx./mo'b Testing: Panorama/and or [facility] screen: ? low?risk NT scan: FAS: nl Vaccinations: Covid: no vaccines, had Covid 2019 Tdap: 10/05/22 Education/Services WIC: enrolled Social Supports/Stressors: Living situation: lives w/her 3 children, Supports: partner Work: direct care staff Transportation: has own transportation Labor, and Concerns: Labor support: partner-Jma, involved, supportive. Plan: natural Infant Feeding Plans: breast control: OB Visit Log Initial Weight: 150 lb Date -?-?-?-?-?-?-?-?-?-?-?-?- EGA Weight Gest Week Fundal Ht Present FHR move Efface % Edema BP PrePreg We Weight GTT -?-?-?-?-?-?-?-?-?-?-?-?- Glucose LV Protein Blood Type 04/27/22 -?-?-?-?-?-?-?-?-?-?-?-?- 10w 1d 339 lb 15.245 oz (+189 lb 15.245 oz) 339 lb 1 5.245 oz -?-?--?-?-?-?-?-?-?-?-?-?- 05/08/22 -?-?-?-?-?-?-?-?-?-?-?-?- 11w 5d 150 lb (+0 oz) 11 150 120/74 150 lb -?-?-?-?-?-?-?-?-?-?-?-?- 06/08/22 -?-?-?-?-?-?-?-?-?-?-?-?- 16w 1d 155 lb (+5 lb) 16 150 114/68 155 lb -?-?-?-?-?-?-?-?-?-?-?-?- 07/06/22 -?-?-?-?-?-?-?-?-?-?-?-?- 20w 1d 161 lb (+11 lb) 20 150 120/72 161 l b -?-?-?-?-?-?-?-?-?-?-?-?- 08/03/22 -?-?-?-?-?-?-?-?-?-?-?-?- 24w 1d 168 lb (+18 lb) 24 150 120/66 168 l b -?-?-?-?-?-?-?-?-?-?-?-?- 09/05/22 -?-?-?-?-?-?-?-?-?-?-?-?- 28w 6d 173 lb (+23 lb) 30 150 110/60 173 l b -?-?-?-?-?-?-?-?-?-?-?-?- 09/19/22 -?-?-?-?-?-?-?-?-?-?-?-?- 30w 6d 172 lb (+22 lb) 30 150 active 104/64 172 lb -?-?-?-?-?-?-?-?-?-?-?-?- 10/05/22 -?-?-?-?-?-?-?-?-?-?-?-?- 33w 1d 176 lb (+26 lb) 33 140 active 100/60 176 lb -?-?-?-?-?-?-?-?-?-?-?-?- Notes Visit Date: 10/05/22 Last Updated by: Bridget Guadarrama CNM Note author: Bridget Guadarrama CNM/Khadijah Lloyd medical chief technician 33.1 wk MAGALIS. Feeling well. Taking PNV. Hydrating well and good appetite Good FM, no LOF, VB or abd pain. Interested in transferring care to [facility] at this ti me. TDaP offered; she accepts. Discussed: PTL - LOF, VB, abd pain . TDaP reviewed and ordered. Different BC options reviewed. MAGALIS visit every 2 weeks until transfer of care to [facility]. AP testing at 37wks. Advised to eat small frequent meals and stay cool and hydrated. Recommend stretches to help with pelvic tilting for her low back pain, if no improvement consider PT. PEC - headaches: not resolved with 2 regular strength Tylenol doses, visual disturbances warnings and when to call for further evaluation. Reviewed when to call for any VB, LOF, contractions, Kick counts reviewed and when to call for any decreased FM. Encouraged patient to sign up for patient portal. Discussed to call the service here for any emergencies/deliveries to be directed to [facility]. Visit Date: 09/19/22 Last Updated by: Bridget Guadarrama CNM Note author: Bridget Guadarrama CNM/Khadijah Lloyd medical chief technician 30.6 wk MAGALIS. Feeling well. Taking PNV. Hydrating well and good appetite Good FM, no LOF, VB or abd pain. No complaints or concerns States she would like to defer the TDaP until next visit. Reports taking PNV gummies and iron qd. Reports a few [place] U/c's. Discussed: PTL - LOF, VB, abd pain . Discuss transfer of care process; will discuss decision next visit. Advised to eat small frequent meals and stay cool and hydrated. PEC - headaches: not resolved with 2 regular strength Tylenol doses, visual disturbances warnings and when to call for further evaluation. Reviewed when to call for any VB, LOF, PTL contractions, when to call for further eval. Kick counts reviewed and when to call for any decreased FM. Discussed to call the service here for any emergencies/deliveries to be directed to [facility]. [facility] midwifery info provided. RTO 2 wks. Visit Date: 09/05/22 Last Updated by: Bridget Guadarrama CNM Note author: Bridget Guadarrama CNM/Khadijah Lloyd medical chief technician 28.6 wk MAGALIS. Feeling well. Taking PNV. Hydrating well and good appetite Good FM, no LOF, VB or abd pain. TDAP offered today; she opts to do it at another visit. EPDS 8: States the father of her other children passed and is dealing with alot with her daughter's depression. States she tends to cry to cope, has a great support system. Discussed: PTL - LOF, VB, abd pain . Reviewed previous lab work. Advised to call/ meet staff and midwives at [facility]. Lite rature given. Advised to eat healthy including small frequent meals every 2 hrs and stay hydrated in hot weather. Recommend reading and online classes/research for educational purposes. PEC - headaches: not resolved with 2 regular strength Tylenol doses, visual disturbances warnings and when to call for further evaluation. Reviewed when to call for any VB, LOF, contractions, Kick counts reviewed and when to call for any decreased FM. Encouraged patient to sign up for patient portal. Discussed to call the service here for any emergencies/deliveries to be directed to [facility]. RTO 2 wks. Visit Date: 08/03/22 Last Updated by: Bridget Guadarrama CNM Note author: Bridget Guadarrama CNM/Khadijah Lloyd medical chief technician 24.1wk MAGALIS. Feeling well. Taking PNV. Hydrated well and good appetite Good FM, no LOF, VB or abd pain. States it wss difficult to schedule last lab work due to her ability to not take off time from work. Discussed: PTL - LOF, VB, abd pain Advised to eat healthy and stay hydrated. PEC - headaches: not resolved with 2 regular strength Tylenol doses, visual disturbances warnings and when to call for further evaluation. 28wk labs incl: thyroid level, prev. ordered(Sunday-weekend before visit due to her work hrs.). Reviewed when to call for any VB, LOF, contractions, Kick counts reviewed and when to call for any decreased FM. Encouraged patient to sign up for patient portal. Discussed to call the service here for any emergencies/deliveries to be directed to [facility]. Marijuana use: counseled re: stopping, not to use during . Advised random UDS, testing at delivery, testing, social worker masters visit/assessment , possible filing 51A. Provide a smoke free envir onment at home and in the car, and no exposure to second hand smoke. RTO 4wks. Visit Date: 07/06/22 Last Updated by: Navarro Kline MD Presenting for visit with no complaints, no contractions, leakage of fluid or bleeding. On vitamin 1 tablet p.o. q.d. A/P: 20 weeks and 1 day of gestation with: 1-hypothyroidism last TSH was on 06/15 was within normal repeat TSH Q trimester. TSH ordered 2-THC positive last urine tox screen was negative for THC on 06/16 3-1st trimester screen/NIPT was low risk, of a fetoprotein negative for neural tube defect, anomaly scan scheduled for tomorrow at [facility] 4- labor warnings given the patient, she is to call in case of contractions, leakage of fluid or bleeding or decreased movements. Follow-up appointment to be scheduled in 4 weeks Visit Date: 06/08/22 Last Updated by: Navarro Kline MD Presenting for visit with no complaints, no contractions, leakage of fluid or bleeding. On vitamin 1 tablet p.o. q.d.. A/P: 16 weeks and 1 day of gestation with: 1-hypothyroidism, TSH was 10.25, the patient was restarted on Synthroid 4 weeks ago order TSH and repeat every trimester 2-positive THC- Discussed with the patient the following effects of Marijuana use in : -Studies noted that children who were exposed to marijuana in utero had lower scores on tests of visual problem solving, visual?motor coordination, decreased attention span and behavioral problems by age 14 years and visual analysis, poorer reading and spelling scores and lower teacher-perceived school performance, smaller lengths and head circumferences as well as lower weights among exposed offspring. These findings were more pronounced among women who used more marijuana, particularly during the first and second trimesters -Available evidence does not consistently suggest that marijuana causes structural anatomic defects in humans except one study showed that marijuana use in the first month of , the odds of anencephaly in the offspring of users was significantly increased to 2.5 - There is somewhat a higher stillbirth rate, no increase in the risk of -At the end, the patient was informed that screening substance abuse will be done throughout this , the purpose of which is to allow treatment of the woman?s substance use, not to punish or prosecute her; In addition the patient was informed of the potential ramification of a positive screen result including mandatory reporting requirements. Will order repeat urine tox screen 3-Rubella nonimmune-rubella vaccine post 4-AMA- Discussed with the patient options for testing for chromosome abnormalities including but not limited to: -Single time point screening with cell free DNA with 99% detection rate for trisomy 21, 98% detection rate for trisomy 18 and 99% detection rate for trisomy 13, combined false-positive rate of 0.13%., some labs offer testing for other aneuploidy such as trisomy 16 and trisomy 22, micro deletion testing and genome wide screening of large copy number changes 26-28, such screening is not recommended. -Ultrasound measurement of NT alone, its sensitivity for T21 detection being only 70%. -First trimester screen: Serum aneuploidy screening with ultrasound which includes cell-free DNA and placental protein based tests, in addition to NT measured by ultrasound, discussed with the patient its sensitivity, false- positive rate, and other limitations associated with each test. First trimester screening gives the potential for earlier diagnosis as well as the ability to screen for other structural, genetic or placental disorders. -Second trimester screening between week 15-22w 6 of gestation, with 80% detection rate for trisomy 21 with a 5% false positive rate. -Combined 1st and 2nd trimester screening test, either integrated, sequential or contingent screening provides a higher detection rate for trisomy 21, 18 and 13 in 1 step serum analyte screening. -Second trimester ultrasound for structural defect. -The availability of invasive diagnostic tests including amniocentesis and CVS were reviewed with the patient, and their potential association with risk of a miscarriage. In addition, the differences between screening tests and diagnostic tests were discussed with the patient. At the end, patient declined diagnostic test and opted for the First trimester screening that is based cell-free DNA or non-invasive testing (NIPT) in combination of ultrasound for NT measurement. All questions answered the patient verbalized understanding. A survey will be scheduled at 18-22 weeks. 5-Open neural tube defect screening-discussed with the patient options of screening including maternal vulva fetoprotein and anomaly screen all pros and cons risks benefits, the patient decided to go for both will order of a fetoprotein 6-SAB warnings given the patient, she is to come back in 4 weeks Visit Date: 05/08/22 Last Updated by: Matilda Mariano CNM Patient is here for her 1st visit P OB PE. She is 11 weeks and 5 days based off of an early ultrasound done to confirm dating. She has a nuchal translucency and genetic screening visit at [facility] on this coming Sunday05/10/2022. We discussed NIPT and that it would most likely be offered to her after the nuchal translucency ultrasound. She has a history of hypothyroid and after her miscarriage she just stopped the medication. She had all of her lab work done last week for the initial OB visit and is awaiting the results TSH level to communicate with her primary care provider so that the dose can be adjusted she was on levothyroxine 75 mcg. The TSH level was 10.25, which is markedly elevated. She is going to sign paperwork to have the low this level faxed to her provider now so that when she calls they will have the record in front of them today for dosage adjustment I told her to anticipate a increased dosage. We reviewed care here versus receiving care at [facility]. She is more comfortable coming here for care I did discuss high risk reasons that would necessitate a transfer. We reviewed that she would not get to know her delivering team head of time if she comes here for care but she is comfortable with the midwives delivering her. Her Pap smear was normal in November so it was not repeated today. RTC 4 weeks. I reviewed that for all urgent visits she would be evaluated at [facility] after calling here. Visit Date: 04/27/22 Last Updated by: Melly Azar LPN Liliam is here today with her s.o/ FOB. for Nurse intake. . Pt is able to drink and eat ok. Discussed more frequent smaller amounts of healthy food choices. Advised to stay away from fast foods, and salty foods. Also to increase her H2O to 7-10 glasses per day. Pt denies any problems with her pregnancies, no GDM or PEC. She denies any use of MJ or illecits. Discussed with pt that her [place] will be done [place] [facility], as well as delivery. She was also informed that she will be transferred to [facility] if her becomes high risk at any point. Pt verbs understanding. 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 Pt has HX of Hypothyroid, and says she has not been taking her medications, TSH ordered with her routine labs. She was urged to contact her prescribing provider for refill on her meds, especially when . Pt verbs understanding.Discussed with pt, how to reach supervisor show operations MD for any OB emergencies, and to go to [facility] ED prior to 20 wks gestation for any problems. Discussed NT U/S, and genetic screening that will be ordered on day of u/s. Discussed with and given packet to pt. Pt has not been vaccinated for flu or Covid. Discussed recommendations in . She does desire to breast feed. Pt brought out to front end application developer for scheduling her OB Physical. Results AMB Urinalysis, Automated UA Leukoctes 0.5 Ubaldo/uL Last Edit by Ruby Styles Thang on 10/05/22 15:5 7 UA Nitrite Negative Last Edit by [facility] on 10/05/22 15:57 UA Urobilinogen 0.5 mg/dL Last Edit by Ruby [facility] on 10/05/22 15 :57 UA Protein 0.5 mg/dL Last Edit by Ruby [facility] on 10/05/22 15:57 UA pH 6.0 Last Edit by Ruby [facility] on 10/05/22 15:57 UA Blood 0.5 Checo/uL Last Edit by Ruby Styles Thang on 10/05/22 15:57 UA Specific [place] 1.025 Last Edit by Ruby [facility] on 10/05/22 15:57 UA Ketone Negative Last Edit by KWADWO Smith on 10/05/22 15:57 UA Bilirubin 0 mg/dL Last Edit by Ruby [facility] on 10/05/22 15:57 UA Glucose 0 mg/dL Last Edit by Ruby [facility] on 10/05/22 15:57 Results Reviewed Results Reviewed: Laboratory Last Values Urine pH (Auto) 6.0 10/05/22 15:56 Specific [place] (Auto) 1.025 10/05/22 15:56 Urine Protein (Auto) 0.5 mg/dL 10/05/22 15:56 Glucose (UA)(Auto) 0 mg/dL 10/05/22 15:56 Urine Ketones (Auto) Negative 10/05/22 15:56 Urine Blood (Auto) 0.5 [place]co/uL 10/05/22 15:56 Urine Nitrite (Auto) Negative 10/05/22 15:56 Urine Bilirubin (Auto) 0 mg/dL 10/05/22 15:56 Urine Urobilinogen (Auto) 0.5 mg/dL 10/05/22 15:56 Leukocyte Esterase (Auto) 0.5 Ubaldo/uL 10/05/22 15:56 Assessment & Plan Assessment & Plan (1) Encounter for supervision of normal in third trimester: Code(s): Z34.93 - Encounter for supervision of normal , unspecified, third trimester Category: Medical Orders: Orders TDaP Immunization Today Z34.93 - Encounter for supervision of normal , unspecified, third trimester AMB Urinalysis Automated Today Z34. - Encounter for supervision of normal , unspecified, third trimester Medications: New Boostrix Tdap (diphth,pertus(acell),tetanus) 0.5 mL IM ONCE 0.5 mL 0RF NS Z34. - Encounter for supervision of normal , unspecified, third trimester Coding Level of Care Code [facility] Diagnoses Encounter for supervision of normal in third trimester Z34.93
[2022-10-05 15:49] VITALS: BP 100/60; BMI 29.3
== END 2022-10-06 07:21 | disposition home or self-care (01) ==
LOC: HO.HWS 15:42
PROVIDERS: PCP Nurse Practitioner Family; Visit Provider Advanced Practice Midwife
DX: Z34.93 Encounter for supervision of normal pregnancy, unspecified, third trimester (principal)
CPT/HCPCS: 25942

== ENCOUNTER → 2022-10-05 15:41 | Outpatient (BNVA) | payer OTHER, SELFPAY | PROVIDERS: PCP Nurse Practitioner Family; Visit Provider Advanced Practice Midwife | DX: O09.523 Supervision of elderly multigravida, third trimester (principal); O99.283 Endocrine, nutritional and metabolic diseases complicating pregnancy, third trimester; E03.9 Hypothyroidism, unspecified; Z3A.33 33 weeks gestation of pregnancy | CPT/HCPCS: 81003; 99212 ==

== ENCOUNTER 2022-10-19 08:08 | Outpatient (AMB) | payer OTHER, SELFPAY ==
--- NOTE | 2022-10-19 08:17 | A.OFFVISPN_ITS ---
Intake Vital Signs 10/19/22 08:18 Height 5 ft 5 in Weight 179 lb BMI 29.8 BP 120/72 Intake Visit Reasons: mykel Intake Note: The patient agreed to use of a rn medical inpatient services during this encounter. Scribed for LINDSAY Paredes by Khadijah Lloyd, rn medical inpatient services, on 10/19/2022 at 8:42 am EST. Allergies No Known Allergies Allergy (Verified 10/19/22 08:18) Patient : Yes PFSH Medical History (Updated 09/19/22 @ 08:52 by Khadijah Lloyd) Encounter for supervision of normal in third trimester Encounter for supervision of other normal , second trimester Hypothyroid (~04/27/22) Family History Paternal Aunt Breast cancer Social History Alcohol intake: current Alcohol intake frequency: a few times a week Patient Tobacco Use Status: Never used Tobacco Gender identity: Female Female Reproductive History Menstrual Age of Menarche: 10 History History 5 Elective abortions 0 Para Spontaneous abortions 1 Hx # Term Pregnancies 3 Ectopic pregnancies 0 Hx # Pregnancies 0 Multiple births 0 Past Pregnancies Del. Date GA/Weeks Outcome Route Wt Inf Gender Labor Debbie Anesthesia Location Provider Complicate 07/04/02 40 live - full term 7 lb 7 oz Male 16 hurs none [facility] [place] 11/14/05 40 live - full term 8 lb 6 oz Female 15 hours none [facility] [place] 01/29/10 41 live - full term 7 lb 6 oz Female 4 hours none [facility] [place] 01/04/22 7 spontaneous Visit [facility]STEL Calculator Estimated Delivery Date Method Current WG Current Estimate 11/22/22 Ultrasound #1 35w 1d Other Estimates 11/17/22 LMP (Uncertain) 35w 6d Expected Delivery Route/Plan vaginal Specific Issues/Plans 36yr. old ? ? G 5?P 3003? ? ?LMP: 02/10/22 ? EDC: 11/22/22 ?by early u/s ? ?Blood type: O pos Problem List: 1. AMA: AP testing at 37 wks 2. Hypothyroid-stopped Levothyroxine 75 mcg after SAB, TSH = 10.25-Synthroid restarted, TSH Q trimester. 09/02/22-1.27 3. Marijuana use: quit w/diagnosis. counseled re: not to use during . Advised random UDS, testing at delivery, testing, social service director visit/assessment , possible filing 51A. Provide a smoke free env ironment at home and in the car, and no exposure to second hand smoke. 4. Rubella non immune: pp vaccine 5. gardnerella Pos, to be offered rx./mo'b Testing: Panorama/and or [facility] screen: ? low?risk NT scan: FAS: nl Vaccinations: Covid: no vaccines, had Covid 2019 Tdap: 10/05/22 Education/Services WIC: enrolled Social Supports/Stressors: Living situation: lives w/her 3 children, Supports: partner Work: direct care staff Transportation: has own transportation Labor, and Concerns: Labor support: partner-Jam, involved, supportive. Plan: natural Feeding Plans: breast control: OB Visit Log Initial Weight: 150 lb Date -?-?-?-?-?-?-?-?-?-?-?-?- EGA Weight Gest Week Fundal Ht Present FHR move Efface % Edema BP PrePreg We Weight GTT -?-?-?-?-?-?-?-?-?-?-?-?- Glucose LV Protein Blood Type 04/27/22 -?-?-?-?-?-?-?-?-?-?-?-?- 10w 1d 339 lb 15.245 oz (+189 lb 15.245 oz) 339 lb 1 5.245 oz -?-?-?-?-?-?-?-?-?-?-?-?- 05/08/22 -?-?-?-?-?-?-?-?-?-?-?-?- 11w 5d 150 lb (+0 oz) 11 150 120/74 150 lb -?-?-?-?-?-?-?-?-?-?-?-?- 06/08/22 -?-?-?-?-?-?-?-?-?-?-?-?- 16w 1d 155 lb (+5 lb) 16 150 114/68 155 lb -?-?-?-?-?-?-?-?-?-?-?-?- 07/06/22 -?-?-?-?-?-?-?-?-?-?-?-?- 20w 1d 161 lb (+11 lb) 20 150 120/72 161 l b -?-?-?-?-?-?-?-?-?-?-?-?- 08/03/22 -?-?-?-?-?-?-?-?-?-?-?-?- 24w 1d 168 lb (+18 lb) 24 150 120/66 168 l b -?-?-?-?-?-?-?--?-?-?-?-?- 09/05/22 -?-?-?-?-?-?-?-?-?-?-?-?- 28w 6d 173 lb (+23 lb) 30 150 110/60 173 l b -?-?-?-?-?-?-?-?-?-?-?-?- 09/19/22 -?-?-?-?-?-?-?-?-?-?-?-?- 30w 6d 172 lb (+22 lb) 30 150 active 104/64 172 lb -?-?-?-?-?-?-?-?-?-?-?-?- 10/05/22 -?-?-?-?-?-?-?-?-?-?-?-?- 33w 2d 176 lb (+26 lb) 33 140 active 100/60 176 lb -?-?-?-?-?-?-?-?-?-?-?-?- 10/19/22 -?-?-?-?-?-?-?-?-?-?-?-?- 35w 1d 179 lb (+29 lb) 34 140 active 120/72 179 lb -?-?-?-?-?-?-?-?-?-?-?-?- Notes Visit Date: 10/19/22 Last Updated by: Bridget Guadarrama CNM Note author: Bridget Guadarrama CNM/Khadijah Lloyd rn medical inpatient services 35.1 wk MYKEL. Feeling well. Taking PNV. Hydrating well and good appetite Good FM, no LOF, VB or abd pain. Partner in for visit today. Chart copy to [facility] today. Advised pt. to call and let us know when her appt. is for next week at [facility], otherwise she will need to be added to the schedule as she will need her GBS completed. Discussed to call the service here for any emergencies/deliveries to be directed to [facility]. PT. understands and agree's to the plan of care. She reports lower back pain and Chicot Moreau a few times an hour. She reports she had an appt. 11/01/22 for transfer of care to midwifery at [facility], and they just called back and asked if she could come in today at 11am, as they reported to her that her other appt. was too late. She declined her appt. offer today, due to having this appt. and needed to go to work right after the visit. She is waiting for [facility] midwifery staff to call her back for an appt. next week. Discussed: PTL - LOF, VB, abd pain, BHUC. Advised to eat small frequent meals and stay cool and hydrated. Self help comfort measures: for low back pain- massages, stretches, and heating pad. PEC - headaches: not resolved with 2 regular strength Tylenol doses, visual disturbances warnings and when to call for further evaluation. Counseled re: GBS screening due next week. Informed of AP testing need at [facility] starting at 37wks. to incl. NST/BPP for AMA. Reviewed when to call for any VB, LOF, contractions, Kick counts reviewed and when to call for any decreased FM. Encouraged patient to sign up for patient portal. Visit Date: 10/05/22 Last Updated by: Bridget Guadarrama CNM Note author: Bridget Guadarrama CNM/Khadijah Lloyd rn medical inpatient services 33.1 wk MYKEL. Feeling well. Taking PNV. Hydrating well and good appetite Good FM, no LOF, VB or abd pain. Interested in transferring care to [facility] Midwives at this time. TDaP offered; she accepts. Discussed: PTL - LOF, VB, abd pain . TDaP reviewed and ordered. Different BC options reviewed. MYKEL visit every 2 weeks until transfer of care to [facility]. AP testing at 37wks. Advised to eat small frequent meals and stay cool and hydrated. Recommend stretches to help with pelvic tilting for her low back pain, if no improvement consider PT. PEC - headaches: not resolved with 2 regular strength Tylenol doses, visual disturbances warnings and when to call for further evaluation. Reviewed when to call for any VB, LOF, contractions, Kick counts reviewed and when to call for any decreased FM. Encouraged patient to sign up for patient portal. Discussed to call the service here for any emergencies/deliveries to be directed to [facility]. Visit Date: 09/19/22 Last Updated by: Bridget Guadarrama CNM Note author: Bridget Guadarrama CNM/Khadijah Lloyd rn medical inpatient services 30.6 wk MYKEL. Feeling well. Taking PNV. Hydrating well and good appetite Good FM, no LOF, VB or abd pain. No complaints or concerns States she would like to defer the TDaP until next visit. Reports taking PNV gummies and iron qd. Reports a few Chicot Moreau U/c's. Discussed: PTL - LOF, VB, abd pain . Discuss transfer of care process; will discuss decision next visit. Advised to eat small frequent meals and stay cool and hydrated. PEC - headaches: not resolved with 2 regular strength Tylenol doses, visual disturbances warnings and when to call for further evaluation. Reviewed when to call for any VB, LOF, PTL contractions, when to call for further eval. Kick counts reviewed and when to call for any decreased FM. Discussed to call the service here for any emergencies/deliveries to be directed to [facility]. [facility] midwifery info provided. RTO 2 wks. Visit Date: 09/05/22 Last Updated by: Bridget Guadarrama CNM Note author: Bridget Guadarrama CNM/Khadijah Lloyd rn medical inpatient services 28.6 wk MYKEL. Feeling well. Taking PNV. Hydrating well and good appetite Good FM, no LOF, VB or abd pain. TDAP offered today; she opts to do it at another visit. EPDS 8: States the father of her other children passed and is dealing with alot with her daughter's depression. States she tends to cry to cope, has a great support system. Discussed: PTL - LOF, VB, abd pain . Reviewed previous lab work. Advised to call/ meet staff and midwives at [facility]. Literature given. Advised to eat healthy including small frequent meals every 2 hrs and stay hydrated in hot weather. Recommend reading and online classes/research for educational purposes. PEC - headaches: not resolved with 2 regular strength Tylenol doses, visual disturbances warnings and when to call for further evaluation. Reviewed when to call for any VB, LOF, contractions, Kick counts reviewed and when to call for any decreased FM. Encouraged patient to sign up for patient portal. Discussed to call the service here for any emergencies/deliveries to be directed to [facility]. RTO 2 wks. Visit Date: 08/03/22 Last Updated by: Bridget Guadarrama CNM Note author: Bridget Guadarrama CNM/Khadijah Lloyd rn medical inpatient services 24.1wk MYKEL. Feeling well. Taking PNV. Hydrated well and good appetite Good FM, no LOF, VB or abd pain. States it wss difficult to schedule last lab work due to her ability to not take off time from work. Discussed: PTL - LOF, VB, abd pain Advised to eat healthy and stay hydrated. PEC - headaches: not resolved with 2 regular strength Tylenol doses, visual disturbances warnings and when to call for further evaluation. 28wk labs incl: thyroid level, prev. ordered(Sunday-weekend before visit due to her work hrs.). Reviewed when to call for any VB, LOF, contractions, Kick counts reviewed and when to call for any decreased FM. Encouraged patient to sign up for patient portal. Discussed to call the service here for any emergencies/deliveries to be directed to [facility]. Marijuana use: counseled re: stopping, not to use during . Advised random UDS, testing at delivery, infant testing, social service director visit/assessment , possible filing 51A. Provide a smoke free environment at home and in the car, and no exposure to second hand smoke. RTO 4wks. Visit Date: 07/06/22 Last Updated by: Navarro Kline MD Presenting for visit with no complaints, no contractions, leakage of fluid or bleeding. On vitamin 1 tablet p.o. q.d. A/P: 20 weeks and 1 day of gestation with: 1-hypothyroidism last TSH was on 06/15 was within normal repeat TSH Q trimester. TSH ordered 2-THC positive last urine tox screen was negative for THC on 06/16 3-1st trimester screen/NIPT was low risk, of a fetoprotein negative for neural tube defect, anomaly scan scheduled for tomorrow at [facility] 4- labor warnings given the patient, she is to call in case of contractions, leakage of fluid or bleeding or decreased movements. Follow-up appointment to be scheduled in 4 weeks Visit Date: 06/08/22 Last Updated by: Navarro Kline MD Presenting for visit with no complaints, no contractions, leakage of fluid or bleeding. On vitamin 1 tablet p.o. q.d.. A/P: 16 weeks and 1 day of gestation with: 1-hypothyroidism, TSH was 10.25, the patient was restarted on Synthroid 4 weeks ago order TSH and repeat every trimester 2-positive THC- Discussed with the patient the following effects of Marijuana use in : -Studies noted that children who were exposed to marijuana in utero had lower scores on tests of visual problem solving, visual?motor coordination, decreased attention span and behavioral problems by age 14 years and visual analysis, poorer reading and spelling scores and lower teacher-perceived school performance, smaller lengths and head circumferences as well as lower weights among exposed offspring. These findings were more pronounced among women who used more marijuana, particularly during the first and second trimes ters -Available evidence does not consistently suggest that marijuana causes structural anatomic defects in humans except one study showed that marijuana use in the first month of , the odds of anencephaly in the offspring of users was significantly increased to 2.5 - There is somewhat a higher stillbirth rate, no increase in the risk of -At the end, the patient was informed that screening substance abuse will be done throughout this , the purpose of which is to allow treatment of the woman?s substance use, not to punish or prosecute her; In addition the patient was informed of the potential ramification of a positive screen result including mandatory reporting requirements. Will order repeat urine tox screen 3-Rubella nonimmune-rubella vaccine post 4-AMA- Discussed with the patient options for testing for ch romosome abnormalities including but not limited to: -Single time point screening with cell free DNA with 99% detection rate for trisomy 21, 98% detection rate for trisomy 18 and 99% detection rate for trisomy 13, combined false-positive rate of 0.13%., some labs offer testing for other aneuploidy such as trisomy 16 and trisomy 22, micro deletion testing and genome wide screening of large copy number changes 26-28, such screening is not recommended. -Ultrasound measurement of NT alone, its sensitivity for T21 detection being only 70%. -First trimester screen: Serum aneuploidy screening with ultrasound which includes cell-free DNA and placental protein based tests, in addition to NT measured by ultrasound, discussed with the patient its sensitivity, false- positive rate, and other limitations associated with each test. First trimester screening gives the potential for earlier diagnosis as well as the ability to screen for other structural, genetic or placental disorders. -Second trimester screening between week 15-22w 6 of gestation, with 80% detection rate for trisomy 21 with a 5% false positive rate. -Combined 1st and 2nd trimester screening test, either integrated, sequential or contingent screening provides a higher detection rate for trisomy 21, 18 and 13 in 1 step serum analyte screening. -Second trimester ultrasound for structural defect. -The availability of invasive diagnostic tests including amniocentesis and CVS were reviewed with the patient, and their potential association with risk of a miscarriage. In addition, the differences between screening tests and diagnostic tests were discussed with the patient. At the end, patient declined diagnostic test and opted for the First trimester screening that is based cell-free DNA or non-invasive testing (NIPT) in combination of ultrasound for NT measurement. All questions answered the patient verbalized understanding. A survey will be scheduled at 18-22 weeks. 5-Open neural tube defect screening-discussed with the patient options of screening including maternal vulva fetoprotein and anomaly screen all pros and cons risks benefits, the patient decided to go for both will order of a fetoprotein 6-SAB warnings given the patient, she is to come back in 4 weeks Visit Date: 05/08/22 Last Updated by: Matilda Mariano CNM Patient is here for her 1st visit P OB PE. She is 11 weeks and 5 days based off of an early ultrasound done to confirm dating. She has a nuchal translucency and genetic screening visit at [facility] on this coming Sunday05/10/2022. We discussed NIPT and that it would most likely be offered to her after the nuchal translucency ultrasound. She has a history of hypothyroid and after her miscarriage she just stopped the medication. She had all of her lab work done last week for the initial OB visit and is awaiting the results TSH level to communicate with her primary care provider so that the dose can be adjusted she was on levothyroxine 75 mcg. The TSH level was 10.25, which is markedly elevated. She is going to sign paperwork to have the low this level faxed to her provider now so that when she calls they will have the record in front of them today for dosage adjustment I told her to anticipate a increased dosage. We reviewed care here versus receiving care at [facility]. She is more comfortable coming here for care I did discuss high risk reasons that would necessitate a transfer. We reviewed that she would not get to know her delivering team head of time if she comes here for care but she is comfortable with the midwives delivering her. Her Pap smear was normal in November so it was not repeated today. RTC 4 weeks. I reviewed that for all urgent visits [facility] after calling here. Visit Date: 04/27/22 Last Updated by: Melly Azar LPN Liliam is here today with her s.o/ FOB. for Nurse intake. . Pt is able to drink and eat ok. Discussed more frequent smaller amounts of healthy food choices. Advised to stay away from fast foods, and salty foods. Also to increase her H2O to 7-10 glasses per day. Pt denies any problems with her pregnancies, no GDM or PEC. She denies any use of MJ or illecits. Discussed with pt that her u/s will be done at [facility], as well as delivery. She was also informed that she will be transferred to [facility] if her becomes high risk at any point. Pt verbs understanding. 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 Pt has HX of Hypothyroid, and says she has not been taking her medications, TSH ordered with her routine labs. She was urged to contact her prescribing provider for refill on her meds, especially when . Pt verbs understanding.Discussed with pt, how to reach hydraulic controls technician MD for any OB emergencies, and to go to [facility] ED prior to 20 wks gestation for any problems. Discussed NT U/S, and genetic screening that will be ordered on day of u/s. Discussed with and given packet to pt. Pt has not been vaccinated for flu or Covid. Discussed recommendations in . She does desire to breast feed. Pt brought out to manager desktop for scheduling her OB Ph ysical. Results AMB Urinalysis, Automated UA Leukoctes 1 Ubaldo/uL Last Edit by KWADWO Smith on 10/19/22 08:26 UA Nitrite Negative Last Edit by KWADWO Smith on 10/19/22 08:26 UA Urobilinogen 0 mg/dL Last Edit by KWADWO Smith on 10/19/22 08:2 6 UA Protein 0.5 mg/dL Last Edit by KWADWO Smith on 10/19/22 08:26 UA pH 6 Last Edit by KWADWO Smith on 10/19/22 08:26 UA Blood 0.5 Checo/uL Last Edit by KWADWO Smith on 10/19/22 08:26 UA Specific [place] 1.015 Last Edit by KWADWO Smith on 10/19/22 08:26 UA Ketone Negative Last Edit by KWADWO Smith on 10/19/22 08:26 UA Bilirubin 0 mg/dL Last Edit by KWADWO Smith on 10/19/22 08:26 UA Glucose 0 mg/dL Last Edit by KWADWO Smith on 10/19/22 08:26 Results Reviewed Results Reviewed: Laboratory Last Values Urine pH (Auto) 6 10/19/22 08:25 Specific [place] (Auto) 1.015 10/19/22 08:25 Urine Protein (Auto) 0.5 mg/dL 10/19/22 08:25 Glucose (UA)(Auto) 0 mg/dL 10/19/22 08:25 Urine Ketones (Auto) Negative 10/19/22 08:25 Urine Blood (Auto) 0.5 Checo/uL 10/19/22 08:25 Urine Nitrite (Auto) Negative 10/19/22 08:25 Urine Bilirubin (Auto) 0 mg/dL 10/19/22 08:25 Urine Urobilinogen (Auto) 0 mg/dL 10/19/22 08:25 Leukocyte Esterase (Auto) 1 Ubaldo/uL 10/19/22 08:25 Assessment & Plan Assessment & Plan (1) Encounter for supervision of normal in third trimester: Code(s): Z34.93 - Encounter for supervision of normal , unspecified, third trimester Category: Medical Orders: Orders AMB Urinalysis Automated Today Z34.93 - Encounter for supervision of normal , unspecified, third trimester Coding Level of Care Code [facility] Diagnoses Encounter for supervision of normal in third trimester Z34.93
[2022-10-19 08:18] VITALS: BP 120/72; BMI 29.8
== END 2022-10-19 10:05 | disposition home or self-care (01) ==
LOC: HO.HWSW 08:08
PROVIDERS: PCP Nurse Practitioner Family; Visit Provider Advanced Practice Midwife
DX: Z34.93 Encounter for supervision of normal pregnancy, unspecified, third trimester (principal)
CPT/HCPCS: 25942

== ENCOUNTER → 2022-10-19 08:08 | Outpatient (BNVA) | payer OTHER, SELFPAY | PROVIDERS: PCP Nurse Practitioner Family; Visit Provider Advanced Practice Midwife | DX: O09.523 Supervision of elderly multigravida, third trimester (principal); Z68.35 Body mass index [BMI] 35.0-35.9, adult | CPT/HCPCS: 81003; 99212 ==

== ENCOUNTER 2022-10-25 15:32 | Outpatient (REF) | payer OTHER, SELFPAY | END 2022-10-25 15:33 | disposition home or self-care (01) | LOC: HO.LNP 15:32 | PROVIDERS: PCP Nurse Practitioner Family; Visit Provider Advanced Practice Midwife | DX: O36.5930 Maternal care for other known or suspected poor fetal growth, third trimester, not applicable or unspecified (principal); Z3A.36 36 weeks gestation of pregnancy | CPT/HCPCS: 81003; 99212 ==

== ENCOUNTER 2022-10-25 15:32 | Outpatient (AMB) | payer OTHER, SELFPAY ==
[2022-10-25 15:42] VITALS: BP 120/76; BMI 29.8
--- NOTE | 2022-10-25 15:42 | MHC.OFFVISPN ---
Intake Vital Signs 10/25/22 15:42 Height 5 ft 5 in Weight 179 lb BMI 29.8 BP 120/76 Intake Visit Reasons: mykel/45 Air Bag Stripper: Air Bag Stripper Present (Renetta) Accompanied by: Daughter Allergies No Known Allergies Allergy (Verified 10/25/22 15:45) Patient : Yes PFSH Medical History (Updated 09/19/22 @ 08:52 by Khadijah Lloyd) Encounter for supervision of normal in third trimester Encounter for supervision of other normal , second trimester Hypothyroid (~04/27/22) Family History Paternal Aunt Breast cancer Social History Alcohol intake: current Alcohol intake frequency: a few times a week Patient Tobacco Use Status: Never used Tobacco Gender identity: Female Female Reproductive History Menstrual Age of Menarche: 10 History History 5 Elective abortions 0 Para Spontaneous abortions 1 Hx # Term Pregnancies 3 Ectopic pregnancies 0 Hx # Pregnancies 0 Multiple births 0 Past Pregnancies Del. Date GA/Weeks Outcome Route Wt Inf Gender Labor Debbei Anesthesia Location Provider Complicate 07/04/02 40 live - full term 7 lb 7 oz Male 16 hurs none [facility] none 11/14/05 40 live - full term 8 lb 6 oz Female 15 hours none [facility] none 01/29/10 41 live - full term 7 lb 6 oz Female 4 hours none [facility] none 01/04/22 7 spontaneous Visit [facility] Calculator Estimated Delivery Date Method Current WG Current Estimate 11/22/22 Ultrasound #1 36w 0d Other Estimates 11/17/22 LMP (Uncertain) 36w 5d Expected Delivery Route/Plan vaginal Specific Issues/Plans 36yr. old ? ? G 5?P 3003? ? ?LMP: 02/10/22 ? EDC: 11/22/22 ?by early u/s ? ?Blood type: O pos Problem List: 1. AMA: AP testing at 37 wks 2. Hypothyroid-stopped Levothyroxine 75 mcg after SAB, TSH = 10.25-Synthroid restarted, TSH Q trimester. 09/02/22-1.27 3. Marijuana use: quit w/diagnosis. counseled re: not to use during . Advised random UDS, testing at delivery, infant testing, social insurance administrator visit/assessment , possible filing 51A. Provide a smoke free environment at home and in the car, and no exposure to second hand smoke. 4. Rubella non immune: pp vaccine 5. gardnerella Pos, to be offered rx./mo'b Testing: Panorama/and or First Tri screen: ? low?risk NT scan: FAS: nl Vaccinations: Covid: no vaccines, had Covid 2019 Tdap: 10/05/22 Education/Services WIC: enrolled Social Supports/Stressors: Living situation: lives w/her 3 children, Supports: partner Work: direct care staff Transportation: has own transportation Labor, and Concerns: Labor support: partner-Jam, involved, supportive. Plan: natural Feeding Plans: breast control: OB Visit Log Initial Weight: 150 lb Date <del>?</del> EGA Weight Gest Week Fundal Ht Present FHR move Efface % Edema BP PrePreg We Weight GTT <del>?</del> Glucose LV Protein Blood Type 04/27/22 <del>?</del> 10w 1d 339 lb 15.245 oz (+189 lb 15.245 oz) 339 lb 15.245 oz <del>?</del> 05/08/22 <del>?</del> 11w 5d 150 lb (+0 oz) 11 150 120/74 150 lb <del>?</del> 06/08/22 <del>?</del> 16w 1d 155 lb (+5 lb) 16 150 114/68 155 lb <del>?</del> 07/06/22 <del>?</del> 20w 1d 161 lb (+11 lb) 20 150 120/72 161 lb <del>?</del> 05/11/23 <del>?</del> 24w 1d 168 lb (+18 lb) 24 150 120/66 168 lb <del>?</del> 09/05/22 <del>?</del> 28w 6d 173 lb (+23 lb) 30 150 110/60 173 lb <del>?</del> 09/19/22 <del>?</del> 30w 6d 172 lb (+22 lb) 30 150 active 104/64 172 lb <del>?</del> 10/05/22 <del>?</del> 33w 2d 176 lb (+26 lb) 33 140 active 100/60 176 lb <del>?</del> 10/19/22 <del>?</del> 35w 1d 179 lb (+29 lb) 34 140 active 120/72 179 lb <del>?</del> 10/25/22 <del>?</del> 36w 0d 179 lb (+29 lb) 34 140 active 120/76 179 lb <del>?</del> Notes Visit Date: 10/25/22 Last Updated by: Bridget Guadarrama CNM Note author: Bridget Guadarrama CNM/Khadijah Gabino medical lab technician 36 wk MYKEL. Feeling well. Taking PNV. Hydrating well and good appetite Good FM, no LOF, VB or abd pain. Has complaints of swollen hands and carpel tunnel Denies vaginal itching and irritation. GBS/GC/Ct testing today. Discussed: PTL - LOF, VB, abd pain . Transferring care to Midwifery at [facility] intake appt. is tomorrow. Schedule OB US due to small for dates-US ordered. Advised to eat small frequent meals and stay cool and hydrated. PEC - headaches: not resolved with 2 regular strength Tylenol doses, visual disturbances warnings and when to call for further evaluation. Reviewed when to call for any VB, LOF, contractions, Kick counts reviewed and when to call for any decreased FM. Encouraged patient to sign up for patient portal. Discussed to call the service here for any emergencies/deliveries to be directed to [facility]. Visit Date: 10/19/22 Last Updated by: Bridget Guadarrama CNM Note author: Bridget Guadarrama CNM/Khadijah Lloyd medical lab technician 35.1 wk MYKEL. Feeling well. Taking PNV. Hydrating well and good appetite Good FM, no LOF, VB or abd pain. Partner in for visit today. Chart copy to [facility] today. Advised pt. to call and let us know when her appt. is for next week at [facility], otherwise she will need to be added to the schedule as she will need her GBS completed. Discussed to call the service here for any emergencies/deliveries to be directed to [facility]. PT. understands and agree's to the plan of care. She reports lower back pain and Marion Moreau a few times an hour. She reports she had an appt. 11/01/22 for transfer of care to midwifery at [facility], and they just called back and asked if she could come in today at 11am, as they reported to her that her other appt. was too late. She declined her appt. offer today, due to having this appt. and needed to go to work right after the visit. She is waiting for [facility] midwifery staff to call her back for an appt. next week. Discussed: PTL - LOF, VB, abd pain, BHUC. Advised to eat small frequent meals and stay cool and hydrated. Self help comfort measures: for low back pain- massages, stretches, and heating pad. PEC - headaches: not resolved with 2 regular strength Tylenol doses, visual disturbances warnings and when to call for further evaluation. Counseled re: GBS screening due next week. Informed of AP testing need at [facility] starting at 37wks. to incl. NST/BPP for AMA. Reviewed when to call for any VB, LOF, contractions, Kick counts reviewed and when to call for any decreased FM. Encouraged patient to sign up for patient portal. Visit Date: 10/05/22 Last Updated by: Bridget Guadarrama CNM Note author: Bridget Guadarrama CNM/Khadijah Lloyd medical lab technician 33.1 wk MYKEL. Feeling well. Taking PNV. Hydrating well and good appetite Good FM, no LOF, VB or abd pain. Interested in transferring care to [facility] at this time. TDaP offered; she accepts. Discussed: PTL - LOF, VB, abd pain . TDaP reviewed and ordered. Different BC options reviewed. MYKEL visit every 2 weeks until transfer of care to [facility]. AP testing at 37wks. Advised to eat small frequent meals and stay cool and hydrated. Recommend stretches to help with pelvic tilting for her low back pain, if no improvement consider PT. PEC - headaches: not resolved with 2 regular strength Tylenol doses, visual disturbances warnings and when to call for further evaluation. Reviewed when to call for any VB, LOF, contractions, Kick counts reviewed and when to call for any decreased FM. Encouraged patient to sign up for patient portal. Discussed to call the service here for any emergencies/deliveries to be directed to [facility]. Visit Date: 09/19/22 Last Updated by: Bridget Guadarrama CNM Note author: Bridget Guadarrama CNM/Khadijah Lloyd medical lab technician 30.6 wk MYKEL. Feeling well. Taking PNV. Hydrating well and good appetite Good FM, no LOF, VB or abd pain. No complaints or concerns States she would like to defer the TDaP until next visit. Reports taking PNV gummies and iron qd. Reports a few Marion Moreau U/c's. Discussed: PTL - LOF, VB, abd pain . Discuss transfer of care process; will discuss decision next visit. Advised to eat small frequent meals and stay cool and hydrated. PEC - headaches: not resolved with 2 regular strength Tylenol doses, visual disturbances warnings and when to call for further evaluation. Reviewed when to call for any VB, LOF, PTL contractions, when to call for further eval. Kick counts reviewed and when to call for any decreased FM. Discussed to call the service here for any emergencies/deliveries to be directed to [facility]. [facility] midwifery info provided. RTO 2 wks. Visit Date: 09/05/22 Last Updated by: Bridget Guadarrama CNM Note author: Bridget Guadarrama CNM/Khadijah Lloyd medical lab technician 28.6 wk MYKEL. Feeling well. Taking PNV. Hydrating well and good appetite Good FM, no LOF, VB or abd pain. TDAP offered today; she opts to do it at another visit. EPDS 8: States the father of her other children passed and is dealing with alot with her daughter's depression. States she tends to cry to cope, has a great support system. Discussed: PTL - LOF, VB, abd pain . Reviewed previous lab work. Advised to call/ meet staff and midwives at [facility]. Literature given. Advised to eat healthy including small frequent meals every 2 hrs and stay hydrated in hot weather. Recommend reading and online classes/research for educational purposes. PEC - headaches: not resolved with 2 regular strength Tylenol doses, visual disturbances warnings and when to call for further evaluation. Reviewed when to call for any VB, LOF, contractions, Kick counts reviewed and when to call for any decreased FM. Encouraged patient to sign up for patient portal. Discussed to call the service here for any emergencies/deliveries to be directed to [facility]. RTO 2 wks. Visit Date: 08/03/22 Last Updated by: Bridget Guadarrama CNM Note author: Bridget Guadarrama CNM/Khadijah Lloyd medical lab technician 24.1wk MYKEL. Feeling well. Taking PNV. Hydrated well and good appetite Good FM, no LOF, VB or abd pain. States it wss difficult to schedule last lab work due to her ability to not take off time from work. Discussed: PTL - LOF, VB, abd pain Advised to eat healthy and stay hydrated. PEC - headaches: not resolved with 2 regular strength Tylenol doses, visual disturbances warnings and when to call for further evaluation. 28wk labs incl: thyroid level, prev. ordered(Sunday-weekend before visit due to her work hrs.). Reviewed when to call for any VB, LOF, contractions, Kick counts reviewed and when to call for any decreased FM. Encouraged patient to sign up for patient portal. Discussed to call the service here for any emergencies/deliveries to be directed to [facility]. Marijuana use: counseled re: stopping, not to use during . Advised random UDS, testing at delivery, infant testing, social insurance administrator visit/assessment , possible filing 51A. Provide a smoke free environment at home and in the car, and no exposure to second hand smoke. RTO 4wks. Visit Date: 07/06/22 Last Updated by: Navarro Kline MD Presenting for visit with no complaints, no contractions, leakage of fluid or bleeding. On vitamin 1 tablet p.o. q.d. A/P: 20 weeks and 1 day of gestation with: 1-hypothyroidism last TSH was on 06/15 was within normal repeat TSH Q trimester. TSH ordered 2-THC positive last urine tox screen was negative for THC on 06/16 3-1st trimester screen/NIPT was low risk, of a fetoprotein negative for neural tube defect, anomaly scan scheduled for tomorrow at [facility] 4- labor warnings given the patient, she is to call in case of contractions, leakage of fluid or bleeding or decreased movements. Follow-up appointment to be scheduled in 4 weeks Visit Date: 06/08/22 Last Updated by: Navarro Kline MD Presenting for visit with no complaints, no contractions, leakage of fluid or bleeding. On vitamin 1 tablet p.o. q.d.. A/P: 16 weeks and 1 day of gestation with: 1-hypothyroidism, TSH was 10.25, the patient was restarted on Synthroid 4 weeks ago order TSH and repeat every trimester 2-positive THC- Discussed with the patient the following effects of Marijuana use in : -Studies noted that children who were exposed to marijuana in utero had lower scores on tests of visual problem solving, visual?motor coordination, decreased attention span and behavioral problems by age 14 years and visual analysis, poorer reading and spelling scores and lower teacher-perceived school performance, smaller lengths and head circumferences as well as lower weights among exposed offspring. These findings were more pronounced among women who used more marijuana, particularly during the first and second trimesters -Available evidence does not consistently suggest that marijuana causes structural anatomic defects in humans except one study showed that marijuana use in the first month of , the odds of anencephaly in the offspring of users was significantly increased to 2.5 - There is somewhat a higher stillbirth rate, no increase in the risk of -At the end, the patient was informed that screening substance abuse will be done throughout this , the purpose of which is to allow treatment of the woman?s substance use, not to punish or prosecute her; In addition the patient was informed of the potential ramification of a positive screen result including mandatory reporting requirements. Will order repeat urine tox screen 3-Rubella nonimmune-rubella vaccine post 4-AMA- Discussed with the patient options for testing for chromosome abnormalities including but not limited to: -Single time point screening with cell free DNA with 99% detection rate for trisomy 21, 98% detection rate for trisomy 18 and 99% detection rate for trisomy 13, combined false-positive rate of 0.13%., some labs offer testing for other aneuploidy such as trisomy 16 and trisomy 22, micro deletion testing and genome wide screening of large copy number changes 26-28, such screening is not recommended. -Ultrasound measurement of NT alone, its sensitivity for T21 detection being only 70%. -First trimester screen: Serum aneuploidy screening with ultrasound which includes cell-free DNA and placental protein based tests, in addition to NT measured by ultrasound, discussed with the patient its sensitivity, false-positive rate, and other limitations associated with each test. First trimester screening gives the potential for earlier diagnosis as well as the ability to screen for other structural, genetic or placental disorders. -Second trimester screening between week 15-22w 6 of gestation, with 80% detection rate for trisomy 21 with a 5% false positive rate. -Combined 1st and 2nd trimester screening test, either integrated, sequential or contingent screening provides a higher detection rate for trisomy 21, 18 and 13 in 1 step serum analyte screening. -Second trimester ultrasound for structural defect. -The availability of invasive diagnostic tests including amniocentesis and CVS were reviewed with the patient, and their potential association with risk of a miscarriage. In addition, the differences between screening tests and diagnostic tests were discussed with the patient. At the end, patient declined diagnostic test and opted for the First trimester screening that is based cell-free DNA or non-invasive testing (NIPT) in combination of ultrasound for NT measurement. All questions answered the patient verbalized understanding. A survey will be scheduled at 18-22 weeks. 5-Open neural tube defect screening-discussed with the patient options of screening including maternal vulva fetoprotein and anomaly screen all pros and cons risks benefits, the patient decided to go for both will order of a fetoprotein 6-SAB warnings given the patient, she is to come back in 4 weeks Visit Date: 05/08/22 Last Updated by: Matilda Mariano CNM Patient is here for her 1st visit P OB PE. She is 11 weeks and 5 days based off of an early ultrasound done to confirm dating. She has a nuchal translucency and genetic screening visit at [facility] on this coming Sunday05/10/2022. We discussed NIPT and that it would most likely be offered to her after the nuchal translucency ultrasound. She has a history of hypothyroid and after her miscarriage she just stopped the medication. She had all of her lab work done last week for the initial OB visit and is awaiting the results TSH level to communicate with her primary care provider so that the dose can be adjusted she was on levothyroxine 75 mcg. The TSH level was 10.25, which is markedly elevated. She is going to sign paperwork to have the low this level faxed to her provider now so that when she calls they will have the record in front of them today for dosage adjustment I told her to anticipate a increased dosage. We reviewed care here versus receiving care at [facility]. She is more comfortable coming here for care I did discuss high risk reasons that would necessitate a transfer. We reviewed that she would not get to know her delivering team head of time if she comes here for care but she is comfortable with the midwives delivering her. Her Pap smear was normal in November so it was not repeated today. RTC 4 weeks. I reviewed that for all urgent visits [facility] here. Visit Date: 04/27/22 Last Updated by: Melly Azar LPN Liliam is here today with her s.o/ FOB. for Nurse intake. . Pt is able to drink and eat ok. Discussed more frequent smaller amounts of healthy food choices. Advised to stay away from fast foods, and salty foods. Also to increase her H2O to 7-10 glasses per day. Pt denies any problems with her pregnancies, no GDM or PEC. She denies any use of MJ or illecits. Discussed with pt that her u/s will be done at [facility], as well as delivery. She was also informed that she will be transferred to [facility] if her becomes high risk at any point. Pt verbs understanding. 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 Pt has HX of Hypothyroid, and says she has not been taking her medications, TSH ordered with her routine labs. She was urged to contact her prescribing provider for refill on her meds, especially when . Pt verbs understanding.Discussed with pt, how to reach information consultant MD for any OB emergencies, and to go to [facility] ED prior to 20 wks gestation for any problems. Discussed NT U/S, and genetic screening that will be ordered on day of u/s. Discussed with and given packet to pt. Pt has not been vaccinated for flu or Covid. Discussed recommendations in . She does desire to breast feed. Pt brought out to front end web developer for scheduling her OB Physical. Results AMB Urinalysis, Automated UA Leukoctes 0.5 Ubaldo/uL Last Edit by Ruby Styles [facility] on 10/25/22 15:50 UA Nitrite Negative Last Edit by Ruby Styles [facility] on 10/25/22 15:50 UA Urobilinogen 2 mg/dL Last Edit by Ruby Styles [facility] on 10/25/22 15:50 UA Protein 0.5 mg/dL Last Edit by Ruby Styles [facility] on 10/25/22 15:50 UA pH 6.0 Last Edit by Ruby Styles [facility] on 10/25/22 15:50 UA Blood 0 Checo/uL Last Edit by Ruby Styles [facility] on 10/25/22 15:50 UA Specific Forbes 1.025 Last Edit by KWADWO Smith on 10/25/22 15:50 UA Ketone Negative Last Edit by KWADWO Smith on 10/25/22 15:50 UA Bilirubin 0 mg/dL Last Edit by Ruby Styles [facility] on 10/25/22 15:50 UA Glucose 0 mg/dL Last Edit by KWADWO Smith on 10/25/22 15:50 Results Reviewed Results Reviewed: Laboratory Last Values Urine pH (Auto) 6.0 10/25/22 15:49 Specific Forbes (Auto) 1.025 10/25/22 15:49 Urine Protein (Auto) 0.5 mg/dL 10/25/22 15:49 Glucose (UA)(Auto) 0 mg/dL 10/25/22 15:49 Urine Ketones (Auto) Negative 10/25/22 15:49 Urine Blood (Auto) 0 Checo/uL 10/25/22 15:49 Urine Nitrite (Auto) Negative 10/25/22 15:49 Urine Bilirubin (Auto) 0 mg/dL 10/25/22 15:49 Urine Urobilinogen (Auto) 2 mg/dL 10/25/22 15:49 Leukocyte Esterase (Auto) 0.5 Ubaldo/uL 10/25/22 15:49 Assessment & Plan Assessment & Plan (1) Encounter for supervision of normal in third trimester: Code(s): Z34.93 - Encounter for supervision of normal , unspecified, third trimester Category: Medical (2) Small for dates affecting management of mother: Code(s): O36.5933 - Maternal care for other known or suspected poor growth, unspecified trimester, not applicable or unspecified Orders: Orders CT NG by PCR Today Z34.93 - Encounter for supervision of normal , unspecified, third trimester Group B Strep PCR Today Z34.93 - Encounter for supervision of normal , unspecified, third trimester US OB follow up Today O36.5990 - Maternal care for other known or suspected poor growth, unspecified trimester, not applicable or unspecified AMB Urinalysis Automated Today Z34.93 - Encounter for supervision of normal , unspecified, third trimester Coding Level of Care Code [facility] Diagnoses Encounter for supervision of normal in third trimester Z34.93 Small for dates affecting management of mother O36.6627
== END 2022-10-25 16:19 | disposition home or self-care (01) ==
LOC: HO.HWS 15:32
PROVIDERS: PCP Nurse Practitioner Family; Visit Provider Advanced Practice Midwife
DX: O36.5990 Maternal care for other known or suspected poor fetal growth, unspecified trimester, not applicable or unspecified (principal)
CPT/HCPCS: 25942

== ENCOUNTER 2022-10-25 16:03 | Outpatient (REF) | payer OTHER, SELFPAY ==
[2022-10-26 18:04] LABS: CT PCR NOT DETECTED (Not Detect.); NG PCR NOT DETECTED (Not Detect.)
== END 2022-10-25 16:04 | disposition home or self-care (01) ==
LOC: HO.LAB 16:03
PROVIDERS: Visit Provider Advanced Practice Midwife
DX: Z34.93 Encounter for supervision of normal pregnancy, unspecified, third trimester (principal)
CPT/HCPCS: 0353U

== ENCOUNTER 2022-10-31 07:50 | Outpatient (AMB) | payer OTHER, SELFPAY ==
--- NOTE | 2022-10-31 07:57 | MHC.OFFVISPN ---
Intake Intake Visit Reasons: Group B test only Intake Note: The patient agreed to use of a special forces medical sergeant during this encounter. Scribed for LINDSAY Paredes by Khadijah Lloyd, special forces medical sergeant, on 10/31/2022 at 8:05 am EST. Allergies No Known Allergies Allergy (Verified 10/25/22 15:45) [facility] Medical History (Updated 09/19/22 @ 08:52 by Khadijah Lloyd) Encounter for supervision of normal in third trimester Encounter for supervision of other normal , second trimester Hypothyroid (~04/27/22) Family History Paternal Aunt Breast cancer Social History Alcohol intake: current Alcohol intake frequency: a few times a week Patient Tobacco Use Status: Never used Tobacco Gender identity: Female Female Reproductive History Menstrual Age of Menarche: 10 History History 5 Elective abortions 0 Para Spontaneous abortions 1 Hx # Term Pregnancies 3 Ectopic pregnancies 0 Hx # Pregnancies 0 Multiple births 0 Past Pregnancies Del. Date GA/Weeks Outcome Route Wt Inf Gender Labor Debbie Anesthesia Location Provider Complicate 07/04/02 40 live - full term 7 lb 7 oz Male 16 hurs none [facility] none 11/14/05 40 live - full term 8 lb 6 oz Female 15 hours none [facility] none 01/29/10 41 live - full term 7 lb 6 oz Female 4 hours none [facility] none 01/04/22 7 spontaneous Visit CHRISTEL Calculator Estimated Delivery Date Method Current WG Current Estimate 11/22/22 Ultrasound #1 36w 6d Other Estimates 11/17/22 LMP (Uncertain) 37w 4d Expected Delivery Route/Plan vaginal Specific Issues/Plans 36yr. old ? ? G 5?P 3003? ? ?LMP: 02/10/22 ? EDC: 11/22/22 ?by early u/s ? ?Blood type: O pos Problem List: 1. AMA: AP testing at 37 wks 2. Hypothyroid-stopped Levothyroxine 75 mcg after SAB, TSH = 10.25-Synthroid restarted, TSH Q trimester. 09/02/22-1.27 3. Marijuana use: quit w/diagnosis. counseled re: not to use during . Advised random UDS, testing at delivery, testing, perinatal social worker visit/assessment , possible filing 51A. Provide a smoke free environment at home and in the car, and no exposure to second hand smoke. 4. Rubella non immune: pp vaccine 5. gardnerella Pos, to be offered rx./mo'b Testing: Panorama/and or First Tri screen: ? low?risk NT scan: FAS: nl Vaccinations: Covid: no vaccines, had Covid 2019 Tdap: 10/05/22 Education/Services WIC: enrolled Social Supports/Stressors: Living situation: lives w/her 3 children, Supports: partner Work: direct care staff Transportation: has own transportation Labor, and Concerns: Labor support: partner-Jam, involved, supportive. Plan: natural Infant Feeding Plans: breast control: OB Visit Log Initial Weight: 150 lb Date <del>?</del> EGA Weight Gest Week Fundal Ht Present FHR move Efface % Edema BP PrePreg We Weight GTT <del>?</del> Glucose LV Protein Blood Type 04/27/22 <del>?</del> 10w 1d 339 lb 15.245 oz (+189 lb 15.245 oz) 339 lb 15.245 oz <del>?</del> 05/08/22 <del>?</del> 11w 5d 150 lb (+0 oz) 11 150 120/74 150 lb <del>?</del> 06/08/22 <del>?</del> 16w 1d 155 lb (+5 lb) 16 150 114/68 155 lb <del>?</del> 07/06/22 <del>?</del> 20w 1d 161 lb (+11 lb) 20 150 120/72 161 lb <del>?</del> 08/03/22 <del>?</del> 24w 1d 168 lb (+18 lb) 24 150 120/66 168 lb <del>?</del> 09/05/22 <del>?</del> 28w 6d 173 lb (+23 lb) 30 150 110/60 173 lb <del>?</del> 09/19/22 <del>?</del> 30w 6d 172 lb (+22 lb) 30 150 active 104/64 172 lb <del>?</del> 10/05/22 <del>?</del> 33w 2d 176 lb (+26 lb) 33 140 active 100/60 176 lb <del>?</del> 10/19/22 <del>?</del> 35w 1d 179 lb (+29 lb) 34 140 active 120/72 179 lb <del>?</del> 10/25/22 <del>?</del> 36w 0d 179 lb (+29 lb) 34 140 active 120/76 179 lb <del>?</del> 10/31/22 <del>?</del> 36w 6d 140 active <del>?</del> Notes Visit Date: 10/31/22 Last Updated by: Bridget Guadarrama CNM Note author: Bridget Guadarrama CNM/Khadijah [facility] medical [facility] 36.6 wk MAGALIS. Repeat Group B strep testing only today, due to lab processing issue with prior specimen last week. Patient is now transferred to [facility] since last week. Good FM. Has plan of care w/[facility] incl: AP testing. Follow up w/[facility] for care. Results copy to [facility] when available. Visit Date: 10/25/22 Last Updated by: Bridget Guadarrama CNM Note author: Bridget Guadarrama CNM/Khadijah Lloyd special forces medical sergeant 36 wk MAGALIS. Feeling well. Taking PNV. Hydrating well and good appetite Good FM, no LOF, VB or abd pain. Has complaints of swollen hands and carpel tunnel Denies vaginal itching and irritation. GBS/GC/Ct testing today. Discussed: PTL - LOF, VB, abd pain . Transferring care to Midwifery at [facility] intake appt. is tomorrow. Schedule OB US due to small for dates-US ordered. Advised to eat small frequent meals and stay cool and hydrated. PEC - headaches: not resolved with 2 regular strength Tylenol doses, visual disturbances warnings and when to call for further evaluation. Reviewed when to call for any VB, LOF, contractions, Kick counts reviewed and when to call for any decreased FM. Encouraged patient to sign up for patient portal. Discussed to call the service here for any emergencies/deliveries to be directed to [facility]. Visit Date: 10/19/22 Last Updated by: Bridget Guadarrama CNM Note author: Bridget Guadarrama CNM/Khadijah Lloyd special forces medical sergeant 35.1 wk MAGALIS. Feeling well. Taking PNV. Hydrating well and good appetite Good FM, no LOF, VB or abd pain. Partner in for visit today. Chart copy to [facility] today. Advised pt. to call and let us know when her appt. is for next week at [facility], otherwise she will need to be added to the schedule as she will need her GBS completed. Discussed to call the service here for any emergencies/deliveries to be directed to [facility]. PT. understands and agree's to the plan of care. She reports lower back pain and Deric Moreau a few times an hour. She reports she had an appt. 11/01/22 for transfer of care to midwifery at [facility], and they just called back and asked if she could come in today at 11am, as they reported to her that her other appt. was too late. She declined her appt. offer today, due to having this appt. and needed to go to work right after the visit. She is waiting for [facility] midwifery staff to call her back for an appt. next week. Discussed: PTL - LOF, VB, abd pain, BHUC. Advised to eat small frequent meals and stay cool and hydrated. Self help comfort measures: for low back pain- massages, stretches, and heating pad. PEC - headaches: not resolved with 2 regular strength Tylenol doses, visual disturbances warnings and when to call for further evaluation. Counseled re: GBS screening due next week. Informed of AP testing need at [facility] starting at 37wks. to incl. NST/BPP for AMA. Reviewed when to call for any VB, LOF, contractions, Kick counts reviewed and when to call for any decreased FM. Encouraged patient to sign up for patient portal. Visit Date: 10/05/22 Last Updated by: Bridget Guadarrama CNM Note author: Bridget Guadarrama CNM/Khadijah Lloyd special forces medical sergeant 33.1 wk MAGALIS. Feeling well. Taking PNV. Hydrating well and good appetite Good FM, no LOF, VB or abd pain. Interested in transferring care to [facility] Midwives at this time. TDaP offered; she accepts. Discussed: PTL - LOF, VB, abd pain . TDaP reviewed and ordered. Different BC options reviewed. MAGALIS visit every 2 weeks until transfer of care to [facility]. AP testing at 37wks. Advised to eat small frequent meals and stay cool and hydrated. Recommend stretches to help with pelvic tilting for her low back pain, if no improvement consider PT. PEC - headaches: not resolved with 2 regular strength Tylenol doses, visual disturbances warnings and when to call for further evaluation. Reviewed when to call for any VB, LOF, contractions, Kick counts reviewed and when to call for any decreased FM. Encouraged patient to sign up for patient portal. Discussed to call the service here for any emergencies/deliveries to be directed to [facility]. Visit Date: 09/19/22 Last Updated by: Bridget Guadarrama CNM Note author: Bridget Guadarrama CNM/Khadijah Lloyd special forces medical sergeant 30.6 wk MAGALIS. Feeling well. Taking PNV. Hydrating well and good appetite Good FM, no LOF, VB or abd pain. No complaints or concerns States she would like to defer the TDaP until next visit. Reports taking PNV gummies and iron qd. Reports a few [place] Moreau U/c's. Discussed: PTL - LOF, VB, abd pain . Discuss transfer of care process; will discuss decision next visit. Advised to eat small frequent meals and stay cool and hydrated. PEC - headaches: not resolved with 2 regular strength Tylenol doses, visual disturbances warnings and when to call for further evaluation. Reviewed when to call for any VB, LOF, PTL contractions, when to call for further eval. Kick counts reviewed and when to call for any decreased FM. Discussed to call the service here for any emergencies/deliveries to be directed to [facility]. [facility] midwifery info provided. RTO 2 wks. Visit Date: 09/05/22 Last Updated by: Bridget Guadarrama CNM Note author: Bridget Guadarrama CNM/Khadijah Lloyd special forces medical sergeant 28.6 wk MAGALIS. Feeling well. Taking PNV. Hydrating well and good appetite Good FM, no LOF, VB or abd pain. TDAP offered today; she opts to do it at another visit. EPDS 8: States the father of her other children passed and is dealing with alot with her daughter's depression. States she tends to cry to cope, has a great support system. Discussed: PTL - LOF, VB, abd pain . Reviewed previous lab work. Advised to call/ meet staff and midwives at [facility]. Literature given. Advised to eat healthy including small frequent meals every 2 hrs and stay hydrated in hot weather. Recommend reading and online classes/research for educational purposes. PEC - headaches: not resolved with 2 regular strength Tylenol doses, visual disturbances warnings and when to call for further evaluation. Reviewed when to call for any VB, LOF, contractions, Kick counts reviewed and when to call for any decreased FM. Encouraged patient to sign up for patient portal. Discussed to call the service here for any emergencies/deliveries to be directed to [facility]. RTO 2 wks. Visit Date: 08/03/22 Last Updated by: Bridget Guadarrama CNM Note author: Bridget Guadarrama CNM/Khadijah Lloyd special forces medical sergeant 24.1wk MAGALIS. Feeling well. Taking PNV. Hydrated well and good appetite Good FM, no LOF, VB or abd pain. States it wss difficult to schedule last lab work due to her ability to not take off time from work. Discussed: PTL - LOF, VB, abd pain Advised to eat healthy and stay hydrated. PEC - headaches: not resolved with 2 regular strength Tylenol doses, visual disturbances warnings and when to call for further evaluation. 28wk labs incl: thyroid level, prev. ordered(Sunday-weekend before visit due to her work hrs.). Reviewed when to call for any VB, LOF, contractions, Kick counts reviewed and when to call for any decreased FM. Encouraged patient to sign up for patient portal. Discussed to call the service here for any emergencies/deliveries to be directed to [facility]. Marijuana use: counseled re: stopping, not to use during . Advised random UDS, testing at delivery, testing, perinatal social worker visit/assessment , possible filing 51A. Provide a smoke free environment at home and in the car, and no exposure to second hand smoke. RTO 4wks. Visit Date: 07/06/22 Last Updated by: Navarro Kline MD Presenting for visit with no complaints, no contractions, leakage of fluid or bleeding. On vitamin 1 tablet p.o. q.d. A/P: 20 weeks and 1 day of gestation with: 1-hypothyroidism last TSH was on 06/15 was within normal repeat TSH Q trimester. TSH ordered 2-THC positive last urine tox screen was negative for THC on 06/16 3-1st trimester screen/NIPT was low risk, of a fetoprotein negative for neural tube defect, anomaly scan scheduled for tomorrow at [facility] 4- labor warnings given the patient, she is to call in case of contractions, leakage of fluid or bleeding or decreased movements. Follow-up appointment to be scheduled in 4 weeks Visit Date: 06/08/22 Last Updated by: Navarro Kline MD Presenting for visit with no complaints, no contractions, leakage of fluid or bleeding. On vitamin 1 tablet p.o. q.d.. A/P: 16 weeks and 1 day of gestation with: 1-hypothyroidism, TSH was 10.25, the patient was restarted on Synthroid 4 weeks ago order TSH and repeat every trimester 2-positive THC- Discussed with the patient the following effects of Marijuana use in : -Studies noted that children who were exposed to marijuana in utero had lower scores on tests of visual problem solving, visual?motor coordination, decreased attention span and behavioral problems by age 14 years and visual analysis, poorer reading and spelling scores and lower teacher-perceived school performance, smaller lengths and head circumferences as well as lower weights among exposed offspring. These findings were more pronounced among women who used more marijuana, particularly during the first and second trimesters -Available evidence does not consistently suggest that marijuana causes structural anatomic defects in humans except one study showed that marijuana use in the first month of , the odds of anencephaly in the offspring of users was significantly increased to 2.5 - There is somewhat a higher stillbirth rate, no increase in the risk of -At the end, the patient was informed that screening substance abuse will be done throughout this , the purpose of which is to allow treatment of the woman?s substance use, not to punish or prosecute her; In addition the patient was informed of the potential ramification of a positive screen result including mandatory reporting requirements. Will order repeat urine tox screen 3-Rubella nonimmune-rubella vaccine post 4-AMA- Discussed with the patient options for testing for chromosome abnormalities including but not limited to: -Single time point screening with cell free DNA with 99% detection rate for trisomy 21, 98% detection rate for trisomy 18 and 99% detection rate for trisomy 13, combined false-positive rate of 0.13%., some labs offer testing for other aneuploidy such as trisomy 16 and trisomy 22, micro deletion testing and genome wide screening of large copy number changes 26-28, such screening is not recommended. -Ultrasound measurement of NT alone, its sensitivity for T21 detection being only 70%. -First trimester screen: Serum aneuploidy screening with ultrasound which includes cell-free DNA and placental protein based tests, in addition to NT measured by ultrasound, discussed with the patient its sensitivity, false-positive rate, and other limitations associated with each test. First trimester screening gives the potential for earlier diagnosis as well as the ability to screen for other structural, genetic or placental disorders. -Second trimester screening between week 15-22w 6 of gestation, with 80% detection rate for trisomy 21 with a 5% false positive rate. -Combined 1st and 2nd trimester screening test, either integrated, sequential or contingent screening provides a higher detection rate for trisomy 21, 18 and 13 in 1 step serum analyte screening. -Second trimester ultrasound for structural defect. -The availability of invasive diagnostic tests including amniocentesis and CVS were reviewed with the patient, and their potential association with risk of a miscarriage. In addition, the differences between screening tests and diagnostic tests were discussed with the patient. At the end, patient declined diagnostic test and opted for the First trimester screening that is based cell-free DNA or non-invasive testing (NIPT) in combination of ultrasound for NT measurement. All questions answered the patient verbalized understanding. A survey will be scheduled at 18-22 weeks. 5-Open neural tube defect screening-discussed with the patient options of screening including maternal vulva fetoprotein and anomaly screen all pros and cons risks benefits, the patient decided to go for both will order of a fetoprotein 6-SAB warnings given the patient, she is to come back in 4 weeks Visit Date: 05/08/22 Last Updated by: Matilda Mariano CNM Patient is here for her 1st visit P OB PE. She is 11 weeks and 5 days based off of an early ultrasound done to confirm dating. She has a nuchal translucency and genetic screening visit at [facility] on this coming Sunday05/10/2022. We discussed NIPT and that it would most likely be offered to her after the nuchal translucency ultrasound. She has a history of hypothyroid and after her miscarriage she just stopped the medication. She had all of her lab work done last week for the initial OB visit and is awaiting the results TSH level to communicate with her primary care provider so that the dose can be adjusted she was on levothyroxine 75 mcg. The TSH level was 10.25, which is markedly elevated. She is going to sign paperwork to have the low this level faxed to her provider now so that when she calls they will have the record in front of them today for dosage adjustment I told her to anticipate a increased dosage. We reviewed care here versus receiving care at [facility]. She is more comfortable coming here for care I did discuss high risk reasons that would necessitate a transfer. We reviewed that she would not get to know her delivering team head of time if she comes here for care but she is comfortable with the midwives delivering her. Her Pap smear was normal in November so it was not repeated today. RTC 4 weeks. I reviewed that for all [facility] Visit Date: 04/27/22 Last Updated by: Melly Azar LPN Liliam is here today with her s.o/ FOB. for Nurse intake. . Pt is able to drink and eat ok. Discussed more frequent smaller amounts of healthy food choices. Advised to stay away from fast foods, and salty foods. Also to increase her H2O to 7-10 glasses per day. Pt denies any problems with her pregnancies, no GDM or PEC. She denies any use of MJ or illecits. Discussed with pt that her u/s will be done at [facility], as well as delivery. She was also informed that she will be transferred to [facility] if her becomes high risk at any point. Pt verbs understanding. 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 Pt has HX of Hypothyroid, and says she has not been taking her medications, TSH ordered with her routine labs. She was urged to contact her prescribing provider for refill on her meds, especially when . Pt verbs understanding.Discussed with pt, how to reach distributed energy systems consultant MD for any OB emergencies, and to go to [facility] ED prior to 20 wks gestation for any problems. Discussed NT U/S, and genetic screening that will be ordered on day of u/s. Discussed with and given packet to pt. Pt has not been vaccinated for flu or Covid. Discussed recommendations in . She does desire to breast feed. Pt brought out to commercial front load driver for scheduling her OB Physical. Assessment & Plan Assessment & Plan (1) Encounter for supervision of normal in third trimester: Code(s): Z34.93 - Encounter for supervision of normal , unspecified, third trimester Category: Medical Orders: Orders Group B Strep PCR Today Z34.93 - Encounter for supervision of normal , unspecified, third trimester Coding Level of Care Code [facility] Encounter for supervision of normal in third trimester Z34.93 Comment repeat GBS only, pt has trans to [facility] last week
== END 2022-10-31 09:05 | disposition home or self-care (01) ==
LOC: HO.HWS 07:51
PROVIDERS: PCP Nurse Practitioner Family; Visit Provider Advanced Practice Midwife
DX: Z34.93 Encounter for supervision of normal pregnancy, unspecified, third trimester (principal)
CPT/HCPCS: 59426

== ENCOUNTER 2022-10-31 07:50 | Outpatient (REF) | payer OTHER, SELFPAY ==
[2022-11-02 12:42] LABS: Allergic to Penicillin? No
== END 2022-10-31 07:51 | disposition home or self-care (01) ==
LOC: HO.LAB 07:50
PROVIDERS: PCP Nurse Practitioner Family; Visit Provider Advanced Practice Midwife
DX: O09.523 Supervision of elderly multigravida, third trimester (principal); O99.283 Endocrine, nutritional and metabolic diseases complicating pregnancy, third trimester; E03.9 Hypothyroidism, unspecified; Z3A.36 36 weeks gestation of pregnancy
CPT/HCPCS: 36415; 87150

== ENCOUNTER 2022-12-28 08:32 | Outpatient (AMB) | payer OTHER, SELFPAY ==
[2022-12-28 08:38] VITALS: BP 120/66; BMI 27.8
--- NOTE | 2022-12-28 08:38 | MHC.OFFVISPN ---
Intake Vital Signs 12/28/22 08:38 Height 5 ft 5 in Weight 167 lb BMI 27.8 BP 120/66 Intake Visit Reasons: 6 week post partrum Intake Note: Still spotting The patient agreed to use of a medical staff manager during this encounter. Scribed for LINDSAY Paredes by Khadijah Lloyd medical staff manager, on 12/28/2022 at 8:50 am EST. Wharf Hand Required: No Information Interpreted: non-clinical & clinical Sinter Machine Operator: Sinter Machine Operator Present (Fredy) Allergies No Known Allergies Allergy (Verified 12/28/22 08:41) Is last menstrual period known: No Post menopausal: No Patient : No PFSH Medical History (Updated 12/28/22 @ 08:56 by Khadijah Llyod) Hypothyroid (~04/27/22) Family History Paternal Aunt Breast cancer Social History Alcohol intake: current Alcohol intake frequency: a few times a week Patient Tobacco Use Status: Never used Tobacco Gender identity: Female Female Reproductive History Menstrual Age of Menarche: 10 control method: progesterone injection Total pregnancies: 5 Full term: 4 Number of Living Children: 4 Ab spontaneous: 1 Date of last pap smear: 12/18/21 (negative) History History 5 Elective abortions 0 Para Spontaneous abortions 1 Hx # Term Pregnancies 4 Ectopic pregnancies 0 Hx # Pregnancies 0 Multiple births 0 Past Pregnancies Del. Date GA/Weeks Outcome Route Wt Inf Gender Labor Debbie Anesthesia Location Provider Complicate 07/04/02 40 live - full term 7 lb 7 oz Male 16 hurs none [facility] none 11/14/05 40 live - full term 8 lb 6 oz Female 15 hours none [facility] none 01/29/10 41 live - full term 7 lb 6 oz Female 4 hours none [facility] none 01/04/22 7 spontaneous Questionnaire History History : 5 Enigma Depression Enigma Depression Scale I have been able to laugh and see the funny side of things: As much as I always could I have looked forward with enjoyment to things: As much as I ever did I have blamed myself unnecessarily when things went wrong: No, never I have been anxious or worried for no reason: Yes, sometimes I have felt scared of panicky for no very good reason at all: No, not so much Things have been getting on top of me: No, most of the time I have coped quite well I have been so unhappy that I have had difficulty sleeping: Not very often I have felt sad or miserable: Not very often I have been so unhappy that I have been crying: Only occasionally The thought of harming myself has occurred to me: Never 7 PHQ Assessment Billing PHQ Assessment Tool: PHQ Assessment 26990 Visit CHRISTEL Calculator Estimated Delivery Date Method Current WG Current Estimate 11/22/22 Ultrasound #1 45w 1d Other Estimates 11/17/22 LMP (Uncertain) 45w 6d Expected Delivery Route/Plan vaginal Specific Issues/Plans 36yr. old ? ? G 5?P 3003? ? ?LMP: 02/10/22 ? EDC: 11/22/22 ?by early u/s ? ?Blood type: O pos Problem List: 1. AMA: AP testing at 37 wks 2. Hypothyroid-stopped Levothyroxine 75 mcg after SAB, TSH = 10.25-Synthroid restarted, TSH Q trimester. 09/02/22-1.27 3. Marijuana use: quit w/diagnosis. counseled re: not to use during . Advised random UDS, testing at delivery, testing, addiction social worker visit/assessment , possible filing 51A. Provide a smoke free environment at home and in the car, and no exposure to second hand smoke. 4. Rubella non immune: pp vaccine 5. gardnerella Pos, to be offered rx./mo'b Testing: Panorama/and or First Tri screen: ? low?risk NT scan: FAS: nl Vaccinations: Covid: no vaccines, had Covid 2020 Tdap: 10/05/22 Education/Services WIC: enrolled Social Supports/Stressors: Living situation: lives w/her 3 children, Supports: partner Work: direct care staff Transportation: has own transportation Labor, and Concerns: Labor support: partner-Jam, involved, supportive. Plan: natural Feeding Plans: breast control: OB Visit Log Initial Weight: 150 lb Date <del>?</del> EGA Weight Gest Week Fundal Ht Present FHR move Efface % Edema BP PrePreg We Weight GTT <del>?</del> Glucose LV Protein Blood Type 04/27/22 <del>?</del> 10w 1d 339 lb 15.245 oz (+189 lb 15.245 oz) 339 lb 15.245 oz <del>?</del> 05/08/22 <del>?</del> 11w 5d 150 lb (+0 oz) 11 150 120/74 150 lb <del>?</del> 06/08/22 <del>?</del> 16w 1d 155 lb (+5 lb) 16 150 114/68 155 lb <del>?</del> 07/06/22 <del>?</del> 20w 1d 161 lb (+11 lb) 20 150 120/72 161 lb <del>?</del> 08/03/22 <del>?</del> 24w 1d 168 lb (+18 lb) 24 150 120/66 168 lb <del>?</del> 09/05/22 <del>?</del> 28w 6d 173 lb (+23 lb) 30 150 110/60 173 lb <del>?</del> 09/19/22 <del>?</del> 30w 6d 172 lb (+22 lb) 30 150 active 104/64 172 lb <del>?</del> 10/05/22 <del>?</del> 33w 2d 176 lb (+26 lb) 33 140 active 100/60 176 lb <del>?</del> 10/19/22 <del>?</del> 35w 1d 179 lb (+29 lb) 34 140 active 120/72 179 lb <del>?</del> 10/25/22 <del>?</del> 36w 0d 179 lb (+29 lb) 34 140 active 120/76 179 lb <del>?</del> 10/31/22 <del>?</del> 36w 6d 140 active <del>?</del> 12/28/22 <del>?</del> 45w 1d 167 lb (+17 lb) 120/66 167 lb <del>?</del> Notes Visit Date: 12/28/22 Last Updated by: Khadijah Lloyd Note author: Bridget Guadarrama CNM/Khadijah Lloyd, medical staff manager She is here for 6 week PPV 11/16/22 . Delivery went well. She is doing well with no concerns. Baby was 6lbs 12 oz is doing well and is healthy. She is bottle feeding with no issues. Taking PNV. EPDS=7 Reports spotting due to activities such as walking. She denies any depression. She admits vaginal itching and irritation but believes its due to her pad. Denies sexual intercourse since giving . Was given Depo 11/18/22 after given and would like to continue with it. She denies any contraindications to control such as: migraines with aura, history of DVT or pulmonary emboli, high blood pressure, liver disease, thrombolic disorders, Lupus, +DURAN, or smoking. Discussed: Labs ordered. Advised to do Kegle exercises. Continue Depo Provera. Rx for Depo sent to pharmacy. Instructed to merchandise pickup/receiving associate rx and bring to office with her. She was instructed to go to ER if she develops loss of vision, severe headache that does not resolve, chest pain, difficulty breathing, abdominal pain, or pain or tenderness in extremity or new breast lumps. Call the office with any concerns. If feeling overwhelmed or stressed contact PCP. Can return to light exercise including post- and core strengthening exercises. Maintain a healthy diet. RTO in one year for AG/prn Visit Date: 10/31/22 Last Updated by: Bridget Guadarrama CNM Note author: Bridget Guadarrama CNM/Khadijah Lloyd medical staff manager 36.6 wk MAGALIS. Repeat Group B strep testing only today, due to lab processing issue with prior specimen last week. Patient is now transferred to [facility] since last week. Good FM. Has plan of care w/[facility] incl: AP testing. Follow up w/[facility] for care. Results copy to [facility] when available. Visit Date: 10/25/22 Last Updated by: Bridget Guadarrama CNM Note author: Bridget Guadarrama CNM/Khadijah Lloyd medical staff manager 36 wk MAGALIS. Feeling well. Taking PNV. Hydrating well and good appetite Good FM, no LOF, VB or abd pain. Has complaints of swollen hands and carpel tunnel Denies vaginal itching and irritation. GBS/GC/Ct testing today. Discussed: PTL - LOF, VB, abd pain . Transferring care to Midwifery at [facility] intake appt. is tomorrow. Schedule OB US due to small for dates-US ordered. Advised to eat small frequent meals and stay cool and hydrated. PEC - headaches: not resolved with 2 regular strength Tylenol doses, visual disturbances warnings and when to call for further evaluation. Reviewed when to call for any VB, LOF, contractions, Kick counts reviewed and when to call for any decreased FM. Encouraged patient to sign up for patient portal. Discussed to call the service here for any emergencies/deliveries to be directed to [facility]. Visit Date: 10/19/22 Last Updated by: Bridget Guadarrama CNM Note author: Bridget Guadarrama CNM/Khadijah Lloyd medical staff manager 35.1 wk MAGALIS. Feeling well. Taking PNV. Hydrating well and good appetite Good FM, no LOF, VB or abd pain. Partner in for visit today. Chart copy to [facility] today. Advised pt. to call and let us know when her appt. is for next week at [facility], otherwise she will need to be added to the schedule as she will need her GBS completed. Discussed to call the service here for any emergencies/deliveries to be directed to [facility]. PT. understands and agree's to the plan of care. She reports lower back pain and Jachin Moreau a few times an hour. She reports she had an appt. 11/01/22 for transfer of care to midwifery at [facility], and they just called back and asked if she could come in today at 11am, as they reported to her that her other appt. was too late. She declined her appt. offer today, due to having this appt. and needed to go to work right after the visit. She is waiting for [facility] midwifery staff to call her back for an appt. next week. Discussed: PTL - LOF, VB, abd pain, BHUC. Advised to eat small frequent meals and stay cool and hydrated. Self help comfort measures: for low back pain- massages, stretches, and heating pad. PEC - headaches: not resolved with 2 regular strength Tylenol doses, visual disturbances warnings and when to call for further evaluation. Counseled re: GBS screening due next week. Informed of AP testing need at [facility] starting at 37wks. to incl. NST/BPP for AMA. Reviewed when to call for any VB, LOF, contractions, Kick counts reviewed and when to call for any decreased FM. Encouraged patient to sign up for patient portal. Visit Date: 10/05/22 Last Updated by: Bridget Guadarrama CNM Note author: Bridget Guadarrama CNM/Khadijah Lloyd medical staff manager 33.1 wk MAGALIS. Feeling well. Taking PNV. Hydrating well and good appetite Good FM, no LOF, VB or abd pain. Interested in transferring care to [facility] Midwives at this time. TDaP offered; she accepts. Discussed: PTL - LOF, VB, abd pain . TDaP reviewed and ordered. Different BC options reviewed. MAGALIS visit every 2 weeks until transfer of care to [facility]. AP testing at 37wks. Advised to eat small frequent meals and stay cool and hydrated. Recommend stretches to help with pelvic tilting for her low back pain, if no improvement consider PT. PEC - headaches: not resolved with 2 regular strength Tylenol doses, visual disturbances warnings and when to call for further evaluation. Reviewed when to call for any VB, LOF, contractions, Kick counts reviewed and when to call for any decreased FM. Encouraged patient to sign up for patient portal. Discussed to call the service here for any emergencies/deliveries to be directed to [facility]. Visit Date: 09/19/22 Last Updated by: Bridget Guadarrama CNM Note author: Bridget Guadarrama CNM/Khadijah Lloyd medical staff manager 30.6 wk MAGALIS. Feeling well. Taking PNV. Hydrating well and good appetite Good FM, no LOF, VB or abd pain. No complaints or concerns States she would like to defer the TDaP until next visit. Reports taking PNV gummies and iron qd. Reports a few Jachin Moreau U/c's. Discussed: PTL - LOF, VB, abd pain . Discuss transfer of care process; will discuss decision next visit. Advised to eat small frequent meals and stay cool and hydrated. PEC - headaches: not resolved with 2 regular strength Tylenol doses, visual disturbances warnings and when to call for further evaluation. Reviewed when to call for any VB, LOF, PTL contractions, when to call for further eval. Kick counts reviewed and when to call for any decreased FM. Discussed to call the service here for any emergencies/deliveries to be directed to [facility]. [facility] midwifery info provided. RTO 2 wks. Visit Date: 09/05/22 Last Updated by: Bridget Guadarrama CNM Note author: Bridget Guadarrama CNM/Khadijah Lloyd medical staff manager 28.6 wk MAGALIS. Feeling well. Taking PNV. Hydrating well and good appetite Good FM, no LOF, VB or abd pain. TDAP offered today; she opts to do it at another visit. EPDS 8: States the father of her other children passed and is dealing with alot with her daughter's depression. States she tends to cry to cope, has a great support system. Discussed: PTL - LOF, VB, abd pain . Reviewed previous lab work. Advised to call/ meet staff and midwives at [facility]. Literature given. Advised to eat healthy including small frequent meals every 2 hrs and stay hydrated in hot weather. Recommend reading and online classes/research for educational purposes. PEC - headaches: not resolved with 2 regular strength Tylenol doses, visual disturbances warnings and when to call for further evaluation. Reviewed when to call for any VB, LOF, contractions, Kick counts reviewed and when to call for any decreased FM. Encouraged patient to sign up for patient portal. Discussed to call the service here for any emergencies/deliveries to be directed to [facility]. RTO 2 wks. Visit Date: 08/03/22 Last Updated by: Bridget Guadarrama CNM Note author: Bridget Guadarrama CNM/Khadijah Lloyd medical staff manager 24.1wk MAGALIS. Feeling well. Taking PNV. Hydrated well and good appetite Good FM, no LOF, VB or abd pain. States it wss difficult to schedule last lab work due to her ability to not take off time from work. Discussed: PTL - LOF, VB, abd pain Advised to eat healthy and stay hydrated. PEC - headaches: not resolved with 2 regular strength Tylenol doses, visual disturbances warnings and when to call for further evaluation. 28wk labs incl: thyroid level, prev. ordered(Sunday-weekend before visit due to her work hrs.). Reviewed when to call for any VB, LOF, contractions, Kick counts reviewed and when to call for any decreased FM. Encouraged patient to sign up for patient portal. Discussed to call the service here for any emergencies/deliveries to be directed to [facility]. Marijuana use: counseled re: stopping, not to use during . Advised random UDS, testing at delivery, testing, addiction social worker visit/assessment , possible filing 51A. Provide a smoke free environment at home and in the car, and no exposure to second hand smoke. RTO 4wks. Visit Date: 07/06/22 Last Updated by: Navarro Kline MD Presenting for visit with no complaints, no contractions, leakage of fluid or bleeding. On vitamin 1 tablet p.o. q.d. A/P: 20 weeks and 1 day of gestation with: 1-hypothyroidism last TSH was on 06/15 was within normal repeat TSH Q trimester. TSH ordered 2-THC positive last urine tox screen was negative for THC on 06/16 3-1st trimester screen/NIPT was low risk, of a fetoprotein negative for neural tube defect, anomaly scan scheduled for tomorrow at [facility] 4- labor warnings given the patient, she is to call in case of contractions, leakage of fluid or bleeding or decreased movements. Follow-up appointment to be scheduled in 4 weeks Visit Date: 06/08/22 Last Updated by: Navarro Kline MD Presenting for visit with no complaints, no contractions, leakage of fluid or bleeding. On vitamin 1 tablet p.o. q.d.. A/P: 16 weeks and 1 day of gestation with: 1-hypothyroidism, TSH was 10.25, the patient was restarted on Synthroid 4 weeks ago order TSH and repeat every trimester 2-positive THC- Discussed with the patient the following effects of Marijuana use in : -Studies noted that children who were exposed to marijuana in utero had lower scores on tests of visual problem solving, visual?motor coordination, decreased attention span and behavioral problems by age 14 years and visual analysis, poorer reading and spelling scores and lower teacher-perceived school performance, smaller lengths and head circumferences as well as lower weights among exposed offspring. These findings were more pronounced among women who used more marijuana, particularly during the first and second trimesters -Available evidence does not consistently suggest that marijuana causes structural anatomic defects in humans except one study showed that marijuana use in the first month of , the odds of anencephaly in the offspring of users was significantly increased to 2.5 - There is somewhat a higher stillbirth rate, no increase in the risk of -At the end, the patient was informed that screening substance abuse will be done throughout this , the purpose of which is to allow treatment of the woman?s substance use, not to punish or prosecute her; In addition the patient was informed of the potential ramification of a positive screen result including mandatory reporting requirements. Will order repeat urine tox screen 3-Rubella nonimmune-rubella vaccine post 4-AMA- Discussed with the patient options for testing for chromosome abnormalities including but not limited to: -Single time point screening with cell free DNA with 99% detection rate for trisomy 21, 98% detection rate for trisomy 18 and 99% detection rate for trisomy 13, combined false-positive rate of 0.13%., some labs offer testing for other aneuploidy such as trisomy 16 and trisomy 22, micro deletion testing and genome wide screening of large copy number changes 26-28, such screening is not recommended. -Ultrasound measurement of NT alone, its sensitivity for T21 detection being only 70%. -First trimester screen: Serum aneuploidy screening with ultrasound which includes cell-free DNA and placental protein based tests, in addition to NT measured by ultrasound, discussed with the patient its sensitivity, false-positive rate, and other limitations associated with each test. First trimester screening gives the potential for earlier diagnosis as well as the ability to screen for other structural, genetic or placental disorders. -Second trimester screening between week 15-22w 6 of gestation, with 80% detection rate for trisomy 21 with a 5% false positive rate. -Combined 1st and 2nd trimester screening test, either integrated, sequential or contingent screening provides a higher detection rate for trisomy 21, 18 and 13 in 1 step serum analyte screening. -Second trimester ultrasound for structural defect. -The availability of invasive diagnostic tests including amniocentesis and CVS were reviewed with the patient, and their potential association with risk of a miscarriage. In addition, the differences between screening tests and diagnostic tests were discussed with the patient. At the end, patient declined diagnostic test and opted for the First trimester screening that is based cell-free DNA or non-invasive testing (NIPT) in combination of ultrasound for NT measurement. All questions answered the patient verbalized understanding. A survey will be scheduled at 18-22 weeks. 5-Open neural tube defect screening-discussed with the patient options of screening including maternal vulva fetoprotein and anomaly screen all pros and cons risks benefits, the patient decided to go for both will order of a fetoprotein 6-SAB warnings given the patient, she is to come back in 4 weeks Visit Date: 05/08/22 Last Updated by: Matilda Mariano CNM Patient is here for her 1st visit P OB PE. She is 11 weeks and 5 days based off of an early ultrasound done to confirm dating. She has a nuchal translucency and genetic screening visit at [facility] on this coming Sunday05/10/2022. We discussed NIPT and that it would most likely be offered to her after the nuchal translucency ultrasound. She has a history of hypothyroid and after her miscarriage she just stopped the medication. She had all of her lab work done last week for the initial OB visit and is awaiting the results TSH level to communicate with her primary care provider so that the dose can be adjusted she was on levothyroxine 75 mcg. The TSH level was 10.25, which is markedly elevated. She is going to sign paperwork to have the low this level faxed to her provider now so that when she calls they will have the record in front of them today for dosage adjustment I told her to anticipate a increased dosage. We reviewed care here versus receiving care at [facility]. She is more comfortable coming here for care I did discuss high risk reasons that would necessitate a transfer. We reviewed that she would not get to know her delivering team head of time if she comes here for care but she is comfortable with the midwives delivering her. Her Pap smear was normal in November so it was not repeated today. RTC 4 weeks. I reviewed that for all urgent visits she would be evaluated at [facility] after calling here. Visit Date: 04/27/22 Last Updated by: Melly Azar LPN Liliam is here today with her s.o/ FOB. for Nurse intake. . Pt is able to drink and eat ok. Discussed more frequent smaller amounts of healthy food choices. Advised to stay away from fast foods, and salty foods. Also to increase her H2O to 7-10 glasses per day. Pt denies any problems with her pregnancies, no GDM or PEC. She denies any use of MJ or illecits. Discussed with pt that her u/s will be done at [facility], as well as delivery. She was also informed that she will be transferred to [facility] if her becomes high risk at any point. Pt verbs understanding. 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 Pt has HX of Hypothyroid, and says she has not been taking her medications, TSH ordered with her routine labs. She was urged to contact her prescribing provider for refill on her meds, especially when . Pt verbs understanding.Discussed with pt, how to reach consulting sales executive MD for any OB emergencies, and to go to [facility] ED prior to 20 wks gestation for any problems. Discussed NT U/S, and genetic screening that will be ordered on day of u/s. Discussed with and given packet to pt. Pt has not been vaccinated for flu or Covid. Discussed recommendations in . She does desire to breast feed. Pt brought out to hotel front desk agent for scheduling her OB Physical. Exam Const Constitutional General: cooperative, healthy appearing, no acute distress, well developed and alert Orientation/consciousness: oriented to person, oriented to place, oriented to time and patient oriented x3 HENMT Head: normal to inspection Eyes General: appearance normal, both eyes and all related structures Neck Neck: normal visual inspection Thyroid: Thyroid normal Chest Chest palpation & inspection: normal inspection of the chest Breast/axilla inspection: normal inspection of the breasts ( (no puckering, dimpling, peau de orange, retraction, discharge, masses)) GI Inspection (GI): normal to inspection Palpation (GI): Soft to palpation General Exam: Yes bladder normal to palpation External Female Exam: normal external appearance and normal appearance of the urethra Urethra: normal appearance of the urethra Speculum exam - vagina: normal appearance of the vagina and normal discharge Bimanual exam- vagina & uterus: normal bimanual exam, uterine size normal, bladder normal to palpation and normal palpation Bimanual Exam- Adnexa, other: normal adnexae and no masses Skin General skin exam: no rashes or lesions noted Neuro General: Yes oriented to person, Yes oriented to place and Yes oriented to time Cognition (Neuro): normal cognition Extrem General: normal to inspection Psych Appearance: grossly normal Thought process: Normal thought process present Assessment & Plan Assessment & Plan (1) Encounter for visit: Code(s): Z39.2 - Encounter for routine follow-up (2) Surveillance for Depo-Provera contraception: Code(s): Z30.42 - Encounter for surveillance of injectable contraceptive Plan: Continue Depo Provera. Rx for Depo sent to pharmacy. Instructed to merchandise pickup/receiving associate rx and bring to office with her. She was instructed to go to ER if she develops loss of vision, severe headache that does not resolve, chest pain, difficulty breathing, abdominal pain, or pain or tenderness in extremity or new breast lumps. Call the office with any concerns. Orders: Orders TSH reflex Free T4 () Today E03.9 - Hypothyroidism, unspecified, O99.280 - Endocrine, nutritional and metabolic diseases complicating , unspecified trimester Medications: New medroxyprogesterone (Depo-Provera) 150 mg IM [id number] 1 mL 4RF 90 days Coding Level of Care Code [place] Diagnoses Encounter for visit Z39.2 Surveillance for Depo-Provera contraception Z30.42
== END 2022-12-28 09:12 | disposition home or self-care (01) ==
PROVIDERS: PCP Nurse Practitioner Family; Visit Provider Advanced Practice Midwife
DX: Z39.2 Encounter for routine postpartum follow-up (principal); Z30.42 Encounter for surveillance of injectable contraceptive
CPT/HCPCS: 59430; S3005

== ENCOUNTER → 2022-12-28 08:32 | Outpatient (BNVA) | payer OTHER, SELFPAY | PROVIDERS: PCP Nurse Practitioner Family; Visit Provider Advanced Practice Midwife ==

== ENCOUNTER 2023-02-09 10:50 | Outpatient (AMB) | payer OTHER, SELFPAY ==
[2023-02-09 11:50] VITALS: BMI 28.0
--- NOTE | 2023-02-09 11:50 | AM.OFFVISNUR ---
Intake Vital Signs 02/09/23 11:50 Height 5 ft 5 in Weight 168 lb 2 oz BMI 28.0 Intake Visit Reasons: Depo INJ Remanufacturing Technician Required: No Allergies No Known Allergies Allergy (Verified 12/28/22 08:41) Is last menstrual period known: No Post menopausal: No Patient : No Nursing Note Liliam is here for scheduled Depo provera injection for contraception. No c/o. Pt tolerated injection well. Pt advised to schedule next injection in 12 weeks. Pt verbalizes understanding and agrees with plan. No further questions. Office Procedures Depo Questionnaire If YES to any of the following questions, please consult a provider. Date of last injection: 11/18/22 Date of last gynecology exam: 05/08/22 Menstrual pattern since last injection has been: Not Applicable Irregular bleeding?: No Breast lumps or other breast changes?: No Changes in weight or appetite?: No Depression or changes in mood?: No Abnormal hair growth or loss?: No Skin problems (rash, acne, discoloration)?: No Pain at the injection site?: No Headaches?: No Nervousness?: No Abdominal pain or cramping?: No Dizziness or nausea?: No Fatigue or weakness?: No Decrease in sexual drive?: No Chest pain or shortness of breath?: No Swelling in arms or legs?: No Form completed by?: Casandra Bryant RN Office Meds Depo-Provera 150 mg/mL intramuscular syringe Performing Provider: Bridget Guadarrama CNM [place] [facility] [place] [facility] Administered by: Casandra Bryant on 02/09/23 11:53 Dose Route Admin Location Dispensed Lot Number Expiration Date [facility] Database Dba 150 mg IM left deltoid 1 mL [id number] 07/23/24 53989-983-56 [facility] [employer] [facility] Coding Level of Care Code Established Pt Est Pt Level 1 (17145) Patient Type Established History Problem Focused Medical Decision Making Straight Forward Time Spent (min) 10 Assessment & Plan Assessment & Plan Plan Schedule next Depo injection in 12 weeks. Orders: Orders AMB Medroxyprogesterone Injection Patient Supplied Today Z30.42 - Encounter for surveillance of injectable contraceptive
== END 2023-02-09 11:47 | disposition home or self-care (01) ==
PROVIDERS: PCP Nurse Practitioner Family; Visit Provider Advanced Practice Midwife
DX: Z30.42 Encounter for surveillance of injectable contraceptive (principal)

== ENCOUNTER → 2023-02-09 10:50 | Outpatient (BNVA) | payer OTHER, SELFPAY | PROVIDERS: PCP Nurse Practitioner Family; Visit Provider Advanced Practice Midwife | DX: Z30.42 Encounter for surveillance of injectable contraceptive (principal) | CPT/HCPCS: 96372; 99211; J1050 ==

== ENCOUNTER 2023-05-11 14:41 | Outpatient (AMB) | payer OTHER, SELFPAY ==
[2023-05-11 15:23] VITALS: BMI 28.1
--- NOTE | 2023-05-11 15:23 | AM.OFFVISNUR ---
Intake Vital Signs 05/11/23 15:23 Height 5 ft 5 in Weight 169 lb BMI 28.1 Intake Visit Reasons: DEPO Intake Note: Liliam is here for scheduled Depo provera injection. Health Club Attendant Required: No Allergies No Known Allergies Allergy (Verified 12/28/22 08:41) Is last menstrual period known: No Post menopausal: No Patient : No Nursing Note Liliam is here for scheduled Depo provera injection for contraception. No LMP d/t Depo injections. No c/o. No new medical problems. Pt tolerated injection well. She will schedule her next injection in 12 wks. Pt verbalizes understanding and agrees with plan. No further questions. Office Procedures Depo Questionnaire If YES to any of the following questions, please consult a provider. Date of last injection: 02/09/23 Menstrual pattern since last injection has been: Not Applicable Irregular bleeding?: No Breast lumps or other breast changes?: No Changes in weight or appetite?: No Depression or changes in mood?: No Abnormal hair growth or loss?: No Skin problems (rash, acne, discoloration)?: No Pain at the injection site?: No Headaches?: No Nervousness?: No Abdominal pain or cramping?: No Dizziness or nausea?: No Fatigue or weakness?: No Decrease in sexual drive?: No Chest pain or shortness of breath?: No Swelling in arms or legs?: No Form completed by?: Casandra Bryant graffiti cleaner Meds Depo-Provera 150 mg/mL intramuscular syringe Performing Provider: Bridget Guadarrama CNM Performing Location: [facility] [place] [facility] Administered by: Casandra Bryant on 05/11/23 15:26 Dose Route Admin Location Dispensed Lot Number Expiration Date [facility] [place] 150 mg IM left deltoid 1 mL [id number] 03/25/24 91426-998-10 [facility] Coding Level of Care Code Established Pt Est Pt Level 1 (31447) Patient Type Established History Problem Focused Medical Decision Making Straight Forward Time Spent (min) 11 Assessment & Plan Assessment & Plan Orders: Orders AMB Medroxyprogesterone Injection Patient Supplied Today Z30.42 - Encounter for surveillance of injectable contraceptive Patient Instructions: Schedule next Depo injection in 12 weeks. Pt verbalizes understanding and agrees with plan. No further questions.
== END 2023-05-11 15:56 | disposition home or self-care (01) ==
LOC: HO.HWS 14:41
PROVIDERS: PCP Nurse Practitioner Family; Visit Provider Advanced Practice Midwife
DX: Z30.42 Encounter for surveillance of injectable contraceptive (principal)

== ENCOUNTER → 2023-05-11 14:41 | Outpatient (BNVA) | payer OTHER, SELFPAY | PROVIDERS: PCP Nurse Practitioner Family; Visit Provider Advanced Practice Midwife | DX: Z30.42 Encounter for surveillance of injectable contraceptive (principal) | CPT/HCPCS: 96372; 99211; J1050 ==

== ENCOUNTER 2023-08-08 14:51 | Outpatient (AMB) | payer OTHER, SELFPAY ==
--- NOTE | 2023-08-08 15:01 | AM.OFFVISNUR ---
Intake Vital Signs 08/08/23 15:03 Height 5 ft 5 in Weight 75.863 kg BMI 27.8 Intake Visit Reasons: Depo Allergies No Known Allergies Allergy (Verified 12/28/22 08:41) Nursing Note Liliam is here for her scheduled Depo-provera Inj. She denies any problems. AG scheduled for 01/16. return for next Depo-Provera inj in 12 weeks. Office Procedures Depo Questionnaire If YES to any of the following questions, please consult a provider. Date of last injection: 05/11/23 Date of last gynecology exam: 12/28/22 Menstrual pattern since last injection has been: Light Irregular bleeding?: No Breast lumps or other breast changes?: No Changes in weight or appetite?: No Depression or changes in mood?: No Abnormal hair growth or loss?: No Skin problems (rash, acne, discoloration)?: No Pain at the injection site?: No Headaches?: No Nervousness?: No Abdominal pain or cramping?: No Dizziness or nausea?: No Fatigue or weakness?: No Decrease in sexual drive?: No Chest pain or shortness of breath?: No Swelling in arms or legs?: No Form completed by?: Courtney Azar LPN Office Meds Depo-Provera 150 mg/mL intramuscular syringe Performing Provider: Bridget Guadarrama CNM Performing Location: [facility] [place] [facility] Administered by: Melly Azar LPN on 08/08/23 15:04 Dose Route Admin Location Dispensed Lot Number Expiration Date [facility] [place] Medical Transport Specialist 150 mg IM left deltoid 1 mL [id number] 01/23/25 07647-600-06 [facility] Coding Level of Care Code Established Pt Est Pt Level 1 (73371) Patient Type Established History Problem Focused Exam Problem Focused Medical Decision Making Straight Forward Time Spent (min) 20 Assessment & Plan Assessment & Plan Orders: Orders AMB Medroxyprogesterone Injection Patient Supplied Today Z30.42 - Encounter for surveillance of injectable contraceptive Medications: New Depo-Provera (medroxyprogesterone) 150 mg IM ONCE 1 mL 0RF NS Z30.42 - Encounter for surveillance of injectable contraceptive
[2023-08-08 15:03] VITALS: BMI 27.8
== END 2023-08-08 15:01 | disposition home or self-care (01) ==
LOC: HO.HWS 14:51
PROVIDERS: PCP Nurse Practitioner Family; Visit Provider Advanced Practice Midwife
DX: Z30.42 Encounter for surveillance of injectable contraceptive (principal)

== ENCOUNTER → 2023-08-08 14:51 | Outpatient (BNVA) | payer OTHER, SELFPAY | PROVIDERS: PCP Nurse Practitioner Family; Visit Provider Advanced Practice Midwife | DX: Z30.42 Encounter for surveillance of injectable contraceptive (principal) | CPT/HCPCS: 96372; 99211; J1050 ==

== ENCOUNTER 2023-11-02 13:00 | Outpatient (AMB) | payer OTHER, SELFPAY ==
[2023-11-02 13:24] VITALS: BMI 27.8
--- NOTE | 2023-11-02 13:24 | AM.OFFVISNUR ---
Vital Signs 11/02/23 13:24 Height 5 ft 5 in Weight 167 lb BMI 27.8 Intake Visit Reasons: Depo Bean Weigher Required: No Allergies No Known Allergies Allergy (Verified 12/28/22 08:41) Is last menstrual period known: No Post menopausal: No Patient : No Do you need a note to return to daycare/school/sports/work: No Nursing Note Liliam is here for scheduled Depo provera injection. No c/o, no new medical problem and no new medications. Pt tolerated injection well and will schedule her next injection in 12 weeks. Pt verbalizes understanding and agrees with plan. No further questions. Office Procedures Depo Questionnaire If YES to any of the following questions, please consult a provider. Date of last injection: 08/08/23 Date of last gynecology exam: 05/08/22 Menstrual pattern since last injection has been: Not Applicable Irregular bleeding?: No Breast lumps or other breast changes?: No Changes in weight or appetite?: No Depression or changes in mood?: No Abnormal hair growth or loss?: No Skin problems (rash, acne, discoloration)?: No Pain at the injection site?: No Headaches?: No Nervousness?: No Abdominal pain or cramping?: No Dizziness or nausea?: No Fatigue or weakness?: No Decrease in sexual drive?: No Chest pain or shortness of breath?: No Swelling in arms or legs?: No Form completed by?: Casandra Bryant RN Office Meds Depo-Provera 150 mg/mL intramuscular syringe Performing Provider: Bridget Guadarrama CNM Performing Location[place] [facility] [place] [facility] Administered by: Casandra Bryant on 11/02/23 13:26 Dose Route Admin Location Dispensed Lot Number Expiration Date [facility] Stadium Manager 150 mg IM left deltoid 1 mL [id number] 03/25/25 88495-105-93 [facility] Assessment & Plan Assessment & Plan Orders: Orders AMB Medroxyprogesterone Injection Patient Supplied Today Z30.42 - Encounter for surveillance of injectable contraceptive Medications: New Depo-Provera (medroxyprogesterone) 150 mg IM ONCE 1 mL 0RF NS Z30.42 - Encounter for surveillance of injectable contraceptive Patient Instructions: Pt will schedule next injection in 12 weeks.
== END 2023-11-02 13:20 | disposition home or self-care (01) ==
LOC: HO.HWS 13:00
PROVIDERS: PCP Nurse Practitioner Family; Visit Provider Advanced Practice Midwife
DX: Z30.42 Encounter for surveillance of injectable contraceptive (principal)

== ENCOUNTER → 2023-11-02 13:00 | Outpatient (BNVA) | payer OTHER, SELFPAY | PROVIDERS: PCP Nurse Practitioner Family; Visit Provider Advanced Practice Midwife | DX: Z30.42 Encounter for surveillance of injectable contraceptive (principal) | CPT/HCPCS: 96372; 99211; J1050 ==

== ENCOUNTER → 2024-01-18 14:06 | Outpatient (BNVA) | payer OTHER, SELFPAY | PROVIDERS: PCP Nurse Practitioner Family; Visit Provider Advanced Practice Midwife | DX: Z01.419 Encounter for gynecological examination (general) (routine) without abnormal findings (principal); Z30.42 Encounter for surveillance of injectable contraceptive; Z32.02 Encounter for pregnancy test, result negative | CPT/HCPCS: 81025; 96372; 99212; J1050 ==

== ENCOUNTER 2024-04-10 14:51 | Outpatient (AMB) | payer OTHER, SELFPAY ==
[2024-04-10 15:33] VITALS: BMI 29.0
--- NOTE | 2024-04-10 15:33 | AM.OFFVISNUR ---
Vital Signs 04/10/24 15:33 Height 5 ft 5 in Weight 174 lb 8 oz BMI 29.0 Intake Visit Reasons: depo Enterprise Applications Manager Required: No Allergies No Known Allergies Allergy (Verified 12/28/22 08:41) Is last menstrual period known: No Post menopausal: No Patient : No Nursing Note Liliam is here for scheduled Depo provera injection. Pt denies any new medications or new medical problems. Pt tolerated injection well. She is unsure about continuing Depo provera injections for BC. She was advised to schedule a control consult appt. with Bridget to discuss other options for BC. Pt advised to schedule next Depo injection in 12 weeks if she decides not to stop Depo. Pt verbalizes understanding and agrees with plan. No further questions. Office Procedures Depo Questionnaire If YES to any of the following questions, please consult a provider. Date of last injection: 01/18/24 Date of last gynecology exam: 05/08/22 Menstrual pattern since last injection has been: Not Applicable Irregular bleeding?: No Breast lumps or other breast changes?: No Changes in weight or appetite?: No Depression or changes in mood?: No Abnormal hair growth or loss?: No Skin problems (rash, acne, discoloration)?: No Pain at the injection site?: No Headaches?: Yes Nervousness?: No Abdominal pain or cramping?: No Dizziness or nausea?: Yes Fatigue or weakness?: No Decrease in sexual drive?: No Chest pain or shortness of breath?: No Swelling in arms or legs?: No Any other problems or concerns?: Pt reports MUÑOZ and slight nausea when she is approaching her next injection Form completed by?: Casandra Bryant a/c technician Meds Depo-Provera 150 mg/mL intramuscular syringe Performing Provider: Bridget Guadarrama CNM [place] [facility] [place] [facility] Administered by: Casandra Bryant on 04/10/24 15:39 Dose Route Admin Location Dispensed Lot Number Expiration Date [facility] Contact Center Professional 150 mg IM left deltoid 1 mL [id number] 06/23/25 09207-934-70 [facility] Assessment & Plan Assessment & Plan (1) Encounter for management and injection of depo-Provera: Code(s): Z30.42 - Encounter for surveillance of injectable contraceptive Category: Medical Plan: Pt advised to call office to make an appointment with Bridget for BC consult. If she decides to continue Depo injections she will need another appointment in 12 weeks. Pt verbalizes understanding and agrees with plan. No further questions Orders: Orders AMB Medroxyprogesterone Injection Patient Supplied Today Z30.42 - Encounter for surveillance of injectable contraceptive
== END 2024-04-10 15:29 | disposition home or self-care (01) ==
LOC: HO.HWS 14:51
PROVIDERS: PCP Nurse Practitioner Family; Visit Provider Advanced Practice Midwife
DX: Z30.42 Encounter for surveillance of injectable contraceptive (principal)

== ENCOUNTER → 2024-04-10 14:51 | Outpatient (BNVA) | payer OTHER, SELFPAY | PROVIDERS: PCP Nurse Practitioner Family; Visit Provider Advanced Practice Midwife | DX: Z30.42 Encounter for surveillance of injectable contraceptive (principal) | CPT/HCPCS: 96372; 99211; J1050 ==

== ENCOUNTER 2024-07-08 15:02 | Outpatient (AMB) | payer OTHER, SELFPAY ==
[2024-07-08 15:25] VITALS: BMI 30.8
--- NOTE | 2024-07-08 15:25 | AM.OFFVISNUR ---
Vital Signs 07/08/24 15:25 Height 5 ft 5 in Weight 185 lb BMI 30.8 Intake Visit Reasons: DEPO Allergies No Known Allergies Allergy (Verified 12/28/22 08:41) Nursing Note Liliam is here today for her scheduled Depo-provera inj. She is c/o weight gain and headaches, but unclear if headaches are related to her Depo-provera or her neck issues. She is scheduled for her AG on 07/10/24 with Matilda o'Joe and will discuss with her regarding BC options. Pt did not schedule another inj for 12 weeks. Office Procedures Depo Questionnaire If YES to any of the following questions, please consult a provider. Date of last injection: 04/10/24 Date of last gynecology exam: 05/08/22 (Pt came in for PP, and on 01/18/24 came in for AG, but was deferred as pt wasn't feeling well.) Menstrual pattern since last injection has been: Light Irregular bleeding?: No Breast lumps or other breast changes?: No Changes in weight or appetite?: Yes (weight gain) Depression or changes in mood?: No Abnormal hair growth or loss?: No Skin problems (rash, acne, discoloration)?: No Pain at the injection site?: No Headaches?: Yes (pt unsure if it is her sleep habits due to neck pain, will discuss with CNM at her AG next week.) Nervousness?: No Abdominal pain or cramping?: No Dizziness or nausea?: Yes Fatigue or weakness?: No Decrease in sexual drive?: No Chest pain or shortness of breath?: No Swelling in arms or legs?: No Any other problems or concerns?: pt is unsure if she wants to continue with the Depo-Provera injections. Form completed by?: Courtney Azar LPN Office Meds Depo-Provera 150 mg/mL intramuscular suspension Performing Provider: Bridget Guadarrama CNM [place] [facility] [place] [facility] Administered by: Melly Azar LPN on 07/08/24 15:10 Dose Route Admin Location Dispensed Lot Number Expiration Date [facility] Desk Assistant 150 mg IM left deltoid 1 mL [id number] 08/23/25 22814-502-31 [facility] Assessment & Plan Assessment & Plan Orders: Orders AMB Medroxyprogesterone Injection Patient Supplied Today Bridget Guadarrama CNM Z30.42 - Encounter for surveillance of injectable contraceptive Medications: New Depo-Provera (medroxyprogesterone) 150 mg IM ONCE 1 mL 0RF NS Matilda Mariano CNM Z30.42 - Encounter for surveillance of injectable contraceptive Coding Level of Care Code Established Pt Est Pt Level 1 (11655) Patient Type Established History Problem Focused Exam Problem Focused Medical Decision Making Low Complexity Time Spent (min) 25
== END 2024-07-08 15:23 | disposition home or self-care (01) ==
LOC: HO.HWS 15:02
PROVIDERS: PCP Nurse Practitioner Family; Visit Provider Advanced Practice Midwife
DX: Z30.42 Encounter for surveillance of injectable contraceptive (principal)

== ENCOUNTER → 2024-07-08 15:02 | Outpatient (BNVA) | payer OTHER, SELFPAY | PROVIDERS: PCP Nurse Practitioner Family; Visit Provider Advanced Practice Midwife | DX: Z30.42 Encounter for surveillance of injectable contraceptive (principal) | CPT/HCPCS: 96372; 99211; J1050 ==

== ENCOUNTER 2024-10-29 09:51 | Outpatient (AMB) | payer OTHER, SELFPAY ==
[2024-10-29 10:02] VITALS: BP 118/70; BMI 31.4
--- NOTE | 2024-10-29 10:02 | MHC.OFFVIS ---
Vital Signs 10/29/24 10:02 Height 5 ft 5 in Weight 189 lb BMI 31.4 BP 118/70 Blood Pressure Location Rt brachial Position Sitting Intake Visit Reasons: Depo re start Intake Note: here to discuss if she wants to continue with depo provera injections. last injection 07/08/24 was due on 09/23 to 10/07. Have not had any vagial bleeding. Information Interpreted: non-clinical & clinical Accompanied by: Self / Same As Patient Allergies No Known Allergies Allergy (Verified 10/29/24 10:07) Medication List - Last Reconciled 10/29/24 by Radha John LPN levothyroxine 75 mcg PO DAILY medroxyprogesterone (Depo-Provera) 150 mg IM [id number] 90 days Is last menstrual period known: No Post menopausal: No Patient : No Do you need a note to return to daycare/school/sports/work: No HPI Comments Details: Patient is here today to restart Depo but is reconsidering in wants to hear about all her options. Admits to unprotected intercourse October 25. She denies any contraindications to control such as: migraines with aura, history of DVT or pulmonary emboli, high blood pressure, liver disease, thrombolic disorders, Lupus, +DURAN, breast cancer, or smoking. [facility] Medical History Surveillance for Depo-Provera contraception Hypothyroid (~04/27/22) Family History Paternal Aunt Breast cancer Social History Alcohol intake: current Alcohol intake frequency: a few times a week Patient Tobacco Use Status: Never used Tobacco Patient : No Gender identity: Female Female Reproductive History Menstrual Age of Menarche: 10 control method: progesterone injection Total pregnancies: 5 Number of Living Children: 4 Ab spontaneous: 1 Review of Systems Const All systems reviewed & are unremarkable except as noted in HPI and below Physical Exam Vital Signs: Last Vital Signs BP 118/70 10/29/24 10:02 BMI result Body Mass Index 31.4 Const General: cooperative, healthy appearing and no acute distress Orientation/consciousness: patient oriented x3 Neuro General: patient oriented x3 Results AMB Test Urine AMB Test Urine Negative Last Edit by Radha John LPN on 10/29/24 10:14 Results Reviewed Results Reviewed: Laboratory Last Values [facility]st Clinic Negative 10/29/24 10:12 Assessment & Plan Assessment & Plan (1) control counseling: Code(s): Z30.09 - Encounter for other general counseling and advice on contraception Plan Counseled regarding control options with the use of the CDC efficacy guidelines. She is not interested in taking the pill, prefers not to have an implant due to the worries of it migrating, considering Kyleena or Mirena, booklet given. Use, mechanism, risks benefits of IUD reviewed. Advised no unprotected intimacy for 2 weeks, use of condoms advised. Preprocedure planning reviewed advised to have something to eat and drink and take 3 ibuprofen 1 hour before her appointment time and scheduled. Advised to obtain a mammogram for baseline orders completed, patient to be scheduled. The patient expressed understanding and agreement with the plan of care. All of her questions and concerns were addressed to the best of my ability. This note is constructed using voice recognition software. While every effort has been made to ensure accuracy, university partnership rep errors may have been included. Orders: Orders AMB HCG Urine Test Today Z32.02 - Encounter for test, result negative Coding Level of Care Code Est Pt Level 3 (39619) Diagnoses control counseling Z30.09
== END 2024-10-29 12:07 | disposition home or self-care (01) ==
LOC: HO.HWS 09:52
PROVIDERS: PCP Nurse Practitioner Family; Visit Provider Advanced Practice Midwife
DX: Z32.02 Encounter for pregnancy test, result negative (principal); Z30.09 Encounter for other general counseling and advice on contraception
CPT/HCPCS: 99213

== ENCOUNTER → 2024-10-29 09:51 | Outpatient (BNVA) | payer MEDICAID, SELFPAY | PROVIDERS: PCP Nurse Practitioner Family; Visit Provider Advanced Practice Midwife | DX: Z30.09 Encounter for other general counseling and advice on contraception (principal); Z32.02 Encounter for pregnancy test, result negative | CPT/HCPCS: 81025; 99212 ==

== ENCOUNTER → 2024-12-05 14:57 | Outpatient (BNVA) | payer OTHER, SELFPAY | PROVIDERS: PCP Nurse Practitioner Family; Visit Provider Advanced Practice Midwife | DX: Z30.013 Encounter for initial prescription of injectable contraceptive (principal); Z32.02 Encounter for pregnancy test, result negative | CPT/HCPCS: 81025; 96372; 99211; J1050 ==

== ENCOUNTER → 2024-12-05 14:57 | Outpatient (AMB) | payer OTHER, SELFPAY ==
--- NOTE | 2024-12-05 15:09 | AM.OFFVISNUR ---
Vital Signs 12/05/24 15:16 Height 5 ft 5 in Weight 189 lb BMI 31.4 Intake Visit Reasons: Depo Allergies No Known Allergies Allergy (Verified 10/29/24 10:07) Office Procedures Depo Questionnaire If YES to any of the following questions, please consult a provider. Date of last injection: 07/08/24 Date of last menstrual period: 11/29/24 Date of last gynecology exam: 10/29/24 Menstrual pattern since last injection has been: Heavy test in office results: Negative Irregular bleeding?: Not Applicable Breast lumps or other breast changes?: No Changes in weight or appetite?: No Depression or changes in mood?: No Abnormal hair growth or loss?: No Skin problems (rash, acne, discoloration)?: No Pain at the injection site?: No Headaches?: No Nervousness?: No Abdominal pain or cramping?: No Dizziness or nausea?: No Fatigue or weakness?: No Decrease in sexual drive?: No Chest pain or shortness of breath?: No Swelling in arms or legs?: No Any other problems or concerns?: no concerns Form completed by?: Radha John LPN Office Meds Depo-Provera 150 mg/mL intramuscular syringe Performing Provider: Bridget Guadarrama CNM Performing Location: [facility] [place] [facility] Administered by: Radha John LPN on 12/05/24 15:09 Dose Route Admin Location Dispensed Lot Number Expiration Date [facility] Organ Grinder 150 mg IM left deltoid 1 mL [id number] 03/24/27 80994-560-66 [facility] Total Dispensed Waste 1 mL 0 % Results AMB Test Urine AMB Test Urine Negative Last Edit by Radha John LPN on 12/05/24 15:17 Assessment & Plan Assessment & Plan Orders: Orders AMB Medroxyprogesterone Injection Patient Supplied Today Z30.42 - Encounter for surveillance of injectable contraceptive AMB HCG Urine Test Today Z32.02 - Encounter for test, result negative Coding Level of Care Code Established Pt Est Pt Level 1 (91678) Patient Type Established History Problem Focused Exam Problem Focused Medical Decision Making Straight Forward Time Spent (min) 20
[2024-12-05 15:16] VITALS: BMI 31.4
== END ==
LOC: HO.HWS 14:57
PROVIDERS: PCP Nurse Practitioner Family; Visit Provider Advanced Practice Midwife
DX: Z30.42 Encounter for surveillance of injectable contraceptive (principal); Z32.02 Encounter for pregnancy test, result negative

== ENCOUNTER 2025-02-26 16:19 | Outpatient (AMB) | payer OTHER, SELFPAY ==
[2025-02-26 15:28] VITALS: BMI 30.3
--- NOTE | 2025-02-26 15:28 | AM.OFFVISNUR ---
Vital Signs 02/26/25 15:28 Height 5 ft 5 in Weight 182 lb 2 oz BMI 30.3 Intake Visit Reasons: DEPO Allergies No Known Allergies Allergy (Verified 10/29/24 10:07) Nursing Note Liliam is here today for her scheduled Depo-Provera inj. She had 1 episode of light spotting last month. No further problems or concerns. Next AG is scheduled for October 2025. Follow uo in 12 weeks for next inj. Office Procedures Depo Questionnaire If YES to any of the following questions, please consult a provider. Date of last injection: 12/05/24 Date of last menstrual period: 01/26/25 (light spotting) Date of last gynecology exam: 10/29/24 Menstrual pattern since last injection has been: Light Irregular bleeding?: No Breast lumps or other breast changes?: No Changes in weight or appetite?: No Depression or changes in mood?: No Abnormal hair growth or loss?: No Skin problems (rash, acne, discoloration)?: No Pain at the injection site?: No Headaches?: No Nervousness?: No Abdominal pain or cramping?: No Dizziness or nausea?: No Fatigue or weakness?: No Decrease in sexual drive?: No Chest pain or shortness of breath?: No Swelling in arms or legs?: No Form completed by?: Courtney Azar LPN Office Meds Depo-Provera 150 mg/mL intramuscular syringe Performing Provider: Bridget Guadarrama CNM Performing Location: [facility] [place] [facility] Administered by: Melly Azar LPN on 02/26/25 15:29 Dose Route Admin Location Dispensed Lot Number Expiration Date [facility] Electric Power Machine Operator 150 mg IM left deltoid 1 mL [id number] 03/25/27 29436-542-95 [facility] Total Dispensed Waste 1 mL 0 % Assessment & Plan Assessment & Plan Orders: Orders AMB Medroxyprogesterone Injection Patient Supplied Today Z30.42 - Encounter for surveillance of injectable contraceptive Coding Level of Care Code Established Pt Est Pt Level 1 (46003) Patient Type Established History Problem Focused Exam Problem Focused Medical Decision Making Straight Forward Time Spent (min) 20
== END 2025-02-26 16:19 | disposition home or self-care (01) ==
LOC: HO.HWS 16:19
PROVIDERS: PCP Nurse Practitioner Family; Visit Provider Advanced Practice Midwife
DX: Z30.42 Encounter for surveillance of injectable contraceptive (principal)

== ENCOUNTER → 2025-02-26 16:19 | Outpatient (BNVA) | payer OTHER, SELFPAY | PROVIDERS: PCP Nurse Practitioner Family; Visit Provider Advanced Practice Midwife | DX: Z30.42 Encounter for surveillance of injectable contraceptive (principal) | CPT/HCPCS: 96372; 99211; J1050 ==